=== PATIENT | female | born 1945 | race Caucasian/White ===

== ENCOUNTER → 2016-07-05 | Outpatient (CLI) | payer BC ==
[~2016-07-05] MED LIST: ALBUAER19 INH; ASPEC325 PO; BIMA0.01 OPB; DICL-201 PO; FRRG PO; GLC500 PO; LISI10TA PO; MULT-506 PO; SIMV20TA2 PO; SYN137 PO
--- NOTE | 2016-07-06 12:41 | MAMMOGRAPHY REPORT ---
BILATERAL DIGITAL SCREENING MAMMOGRAM TOMOSYNTHESIS WITH CAD: 07/05/2016 CLINICAL HISTORY: Routine screening. Patient has no complaints. TECHNIQUE: Breast tomosynthesis in addition to standard 2D mammography was performed. Current study was also evaluated with a Computer Aided Detection (CAD) system. COMPARISON: Comparison is made to exams dated: 07/18/2015 aspiration, 07/18/2015 mammogram, 07/09/2015 ultrasound, 07/09/2015 mammogram, 06/30/2015 mammogram, and 06/13/2014 mammogram - [facility]. BREAST COMPOSITION: There are scattered areas of fibroglandular density in both breasts. FINDINGS: There are benign calcifications and rodlike secretory calcifications in the breasts. A st able ribbon shaped metallic biopsy marker in the right upper outer quadrant. No suspicious mass, ar chitectural distortion or cluster of suspicious microcalcifications is seen. IMPRESSION: ACR BI-RADS CATEGORY 1: NEGATIVE There is no mammographic evidence of malignancy. A 1 year screening mammogram is recommended. The p atient will receive written notification of the results. Approximately 10% of breast cancers are not detected with mammography. A negative mammographic repor t should not delay biopsy if a clinically suggestive mass is present. Zeina Montejo M.D. ay/:07/05/2016 21:23:20 Iv Therapy Nurse: Omaira Kang, [facility] letter sent: Normal 1/2 BI-RADS Code: ACR BI-RADS Category 1: Negative
== END | disposition home or self-care (01) ==
LOC: C.MAMM 08:55
PROVIDERS: ATTEND Family Medicine
DX: Z12.31 Encounter for screening mammogram for malignant neoplasm of breast (principal)

== ENCOUNTER → 2017-08-09 | Outpatient (CLI) | payer BC ==
--- NOTE | 2017-08-10 15:22 | MAMMOGRAPHY REPORT ---
BILATERAL DIGITAL SCREENING MAMMOGRAM TOMOSYNTHESIS WITH CAD: 08/09/2017 CLINICAL HISTORY: Routine screening. Patient has no complaints. TECHNIQUE: Breast tomosynthesis in addition to standard 2D mammography was performed. Current study was also evaluated with a Computer Aided Detection (CAD) system. COMPARISON: Comparison is made to exams dated: 07/05/2016 mammogram, 07/18/2015 mammogram, 06/30/2015 tunde mogram, 06/13/2014 mammogram, 04/21/2010 mammogram, and 04/17/2009 mammogram - [facility]. BREAST COMPOSITION: There are scattered areas of fibroglandular density in both breasts. FINDINGS: There is stable asymmetry in the subareolar left breast, a stable ribbon-shaped biopsy [place] clip in the right upper outer quadrant, and diffuse benign-appearing calcifications. No new suspi cious mass, architectural distortion or cluster of microcalcifications is seen. IMPRESSION: ACR BI-RADS CATEGORY 1: NEGATIVE There is no mammographic evidence of malignancy. A 1 year screening mammogram is recommended. The pa tient will receive written notification of the results. Approximately 10% of breast cancers are not detected with mammography. A negative mammographic report should not delay biopsy if a clinically suggestive mass is present. Zeina Montejo M.D. ay/:08/09/2017 17:06:20 Crystal Evaluator: Samantha LITTLE)(Gloria), [facility] letter sent: Normal 1/2 BI-RADS Code: ACR BI-RADS Category 1: Negative
== END | disposition home or self-care (01) ==
LOC: C.MAMM 14:39
PROVIDERS: ATTEND Family Medicine
DX: Z12.31 Encounter for screening mammogram for malignant neoplasm of breast (principal)

== ENCOUNTER 2017-09-23 04:54 | Inpatient (IN) | payer BC, OTHER ==
[2017-08-23 10:17] VITALS: BMI 23.0
--- NOTE | 2017-08-23 10:49 | PAT Medication Instructions ---
Service Date Aug 23, 2017. Current Home Medication List Albuterol Hfa (Ventolin Hfa), 2 PUFFS INH Q6H PRN for PRN Bimatoprost (Lumigan), 1 DROP OPB QPM Diclofenac (Voltaren), 75 MG PO BID Levothyroxine Sodium (Synthroid), 200 MCG PO QAM Metformin Hcl (Glucophage Ext Rel), 1,000 MG PO BID Multivitamin (Multivitamin), 1 TAB PO QAM Simvastatin (Zocor), 20 MG PO QAM [Lisinopril Hctz], 1 TAB PO QAM Medication Instructions For Your Scheduled Surgery - Check with surgeon for instructions: Diclofenac (Voltaren), 75 MG PO BID - Hold the following medications the morning of surgery: Metformin Hcl (Glucophage Ext Rel), 1,000 MG PO BID Multivitamin (Multivitamin), 1 TAB PO QAM Simvastatin (Zocor), 20 MG PO QAM [Lisinopril Hctz], 1 TAB PO QAM - Take the following medications the morning of surgery with a sip of water: Levothyroxine Sodium (Synthroid), 200 MCG PO QAM Albuterol Hfa (Ventolin Hfa), 2 PUFFS INH Q6H PRN for PRN (if needed) - Take the following medications as scheduled the night before surgery: Metformin Hcl (Glucophage Ext Rel), 1,000 MG PO BID Bimatoprost (Lumigan), 1 DROP OPB QPM Albuterol Hfa (Ventolin Hfa), 2 PUFFS INH Q6H PRN for PRN (if needed) If you have any questions please call us at [phone] or [phone] or [phone]
--- NOTE | 2017-08-23 12:11 | DIAGNOSTIC IMAGING REPORT ---
CHEST 2 VIEWS ROUTINE CLINICAL HISTORY: Preoperative chest COMPARISON STUDY: 10/11/2014 FINDINGS: The cardiac and mediastinal contours remain stable. There is aortic tortuosity. There is no failure. There is no focal pulmonary consolidation. There are no pleural effusions. Postsurgical changes are present within the left shoulder. Moderate arthritic changes are present within the right shoulder.[ IMPRESSION: No active disease in the chest. Electronically signed by: Jose Addison M.D. 08/23/2017 12:09 PM Dictated Date/Time: 08/23/2017 12:08 PM
[2017-08-23 12:52] LABS: BASO % 0.9 %; BASO ABS # 0.05 K/uL (0-0.2); EOS % 3.1 %; EOS ABS # 0.18 K/uL (0-0.5); HEMATOCRIT 39.6 % (37-47); HEMOGLOBIN 13.9 g/dL (12.0-16.0); IG# 0.01 K/uL (0.00-0.02); LYMPH % 21.9 %; LYMPH ABS # 1.26 K/uL (1.2-3.4); MEAN CELL VOLUME 83.9 fL (80-100); MEAN CORPUSCULAR HEMOGLOBIN 29.4 pg (25-34); MEAN CORPUSCULAR HGB CONC 35.1 g/dl (32-36); MONO % 6.1 %; MONO ABS # 0.35 K/uL (0.11-0.59); NEUT % 67.8 %; NEUT ABS # 3.91 K/uL (1.4-6.5); PLATELET COUNT 189 K/uL (130-400); RED CELL DISTRIBUTION WIDTH CV 14.2 % (11.5-14.5); RED CELL DISTRIBUTION WIDTH SD 43.7 fL (36.4-46.3); WHITE BLOOD COUNT 5.76 K/uL (4.8-10.8)
[2017-08-23 13:03] LABS: PTT PATIENT 27.9 SECONDS (21.0-31.0)
[2017-08-23 13:37] LABS: CALCIUM 9.7 mg/dl (8.5-10.1); CREATININE 0.6 mg/dl (0.60-1.20); POTASSIUM 3.7 mmol/L (3.5-5.1)
--- NOTE | 2017-09-22 16:19 | HISTORY & PHYSICAL EXAMINATION ---
DATE OF ADMISSION: 09/23/2017 CHIEF COMPLAINT: Primary osteoarthritis of the right hip. HISTORY OF PRESENT ILLNESS: Nighat is a very pleasant 71-year-old female who presented to my office with chronic right hip and groin pain. X-rays and clinical examination were diagnostic for primary osteoarthritis of the right hip. After failing extensive conservative treatment, she elected to proceed with a right total hip arthroplasty. PAST MEDICAL HISTORY: Significant for hypertension, hyperlipidemia, asthma, anxiety, hypothyroidism, diabetes, and osteoarthritis. MEDICATIONS: Include diclofenac twice a day, metformin twice a day, lisinopril daily, Synthroid daily, and simvastatin daily. PAST SURGICAL HISTORY: Significant for a surgery to her shoulder, her knee and a cholecystectomy. ALLERGIES: SULFA DRUGS, WHICH CAUSE BREATHING DIFFICULTY AND HIVES AND POLLENS. FAMILY HISTORY: Denies. SOCIAL HISTORY: She denies any alcohol, tobacco or IV drug use. REVIEW OF SYSTEMS: She complains mostly of right hip pain. All other pertinent review of systems are negative. PHYSICAL EXAMINATION: GENERAL: She is awake, alert and orient x3. She is in no apparent distress. She is very pleasant. HEENT: Pupils equal, round and reactive to light. Extraocular movements intact. Oral mucosa is pink and moist. HEART: Regular rate per radial pulse. LUNGS: Marielos symmetrically bilaterally with no audible breath sounds. ABDOMEN: Soft, nontender, and nondistended. MUSCULOSKELETAL: On physical examination of her hip, she has about 100 degrees of flexion. She has very limited internal and external rotation with reproducible pain in the groin and end range of motion. Leg lengths are equal. She has good strength with straight leg raise. IMAGING DATA: X-rays of the right hip do show advanced osteoarthritis with joint space narrowing, osteophyte formation and subchondral cyst. IMPRESSION: Primary osteoarthritis of the right hip. PLAN: We will proceed with a right anterior total hip arthroplasty. Postoperatively, she will be started on aspirin for DVT prophylaxis and kept in the hospital for postoperative medical management.
[~2017-09-23] VITALS: Ht 170.2 cm; Wt 68.8 kg
[2017-09-23] VITALS (10 sets, daily range): BP systolic 107–170; BP diastolic 70–103; PULSE 61–89; TEMP 36.4–36.8; O2SAT 96–100; Ht 170.2 cm; Wt 68.8 kg
[~2017-09-23 04:54] MED LIST changes: -ALBUAER19 INH; -ASPEC325 PO; -FRRG PO; -GLC500 PO; -LISI10TA PO; +LISINOPRIL HCTZ PO; +METF1TAB53 PO; -SYN137 PO; +SYN200 PO; +VNTHFA/IN INH
[2017-09-23] MEDS ORDERED: LACTATED RINGER'S 1000ML 1,000 ML IV SCH (06:00)
[2017-09-23] MEDS ORDERED: LACTATED RINGER'S 1000ML 500 ML IV SCH (06:00)
[2017-09-23] MEDS ORDERED: CEFAZOLIN 2000MG IV PUSH 15 ML IV SCH (06:00)
[2017-09-23] MEDS ORDERED: GABAPENTIN 300 MG CAP PO SCH (06:00)
[2017-09-23] MEDS ORDERED: ACETAMINOPHEN 500 MG TAB PO SCH ×2 (06:00→14:00)
[2017-09-23] MEDS ORDERED: LACTATED RINGER'S 1000ML IV SCH (06:00)
[2017-09-23] MEDS ORDERED: FAMOTIDINE 20 MG TAB PO SCH (06:00)
[2017-09-23] MEDS ORDERED: ROPIVACAINE 5MG/ML 30 ML 150 MG, BUPIVACAINE 0.5% MPF INJ 30 ML, EpINEphrine HCL INJ 0.... INFIL SCH ×8 (06:00)
[2017-09-23] MEDS ORDERED: BUPIVACAINE 0.5 % 5 MG/1 ML PF 10ML VIAL ONE (06:28)
[2017-09-23] MEDS: TRANEXAMIC ACID INJ 1,000 MG x 2 Bags IV SCH ×4 (06:30→06:40)
[2017-09-23] MEDS ORDERED: BACITRACIN 50000 UNIT VIAL ONE (06:30)
[2017-09-23] MEDS ORDERED: ORTHO JOINT ANESTHETIC ONE (06:30)
[2017-09-23] MEDS ORDERED: FENTANYL CITRATE INJ 50 MCG/1 ML 2 ML VIAL ONE (06:45)
[2017-09-23] MEDS ORDERED: MIDAZOLAM HCL 1 MG/ML 2ML VIAL ONE ×2 (06:45→07:15)
--- NOTE | 2017-09-23 06:57 | History & Physical Bridge Note ---
H&P Re-Evaluation Bridge Note: I have examined the patient, reviewed the History & Physical and in the interval since the performance of the History & Physical I have noted the following changes of clinical significance: No changes noted
[2017-09-23] MEDS ORDERED: MEPERIDINE HCL 25 MG/ML CARP IV PRN (07:30)
[2017-09-23] MEDS ORDERED: ONDANSETRON INJ 2 MG/ML 2 ML VIAL IV PRN ×2 (07:30→09:00)
[2017-09-23] MEDS ORDERED: EpHEDrine SULFATE INJ 50 MG/ML AMP IV PRN (07:30)
[2017-09-23] MEDS ORDERED: PHENYLEPHRINE 100MCG/ML 5ML SYR IV PRN (07:30)
[2017-09-23] MEDS ORDERED: FENTANYL CITRATE INJ 50 MCG/1 ML 2 ML VIAL IV PRN (07:30)
[2017-09-23] MEDS ORDERED: LABETALOL HCL IV 5 MG/ML 20ML IV PRN (07:30)
[2017-09-23] MEDS ORDERED: HYDROmorphone INJ 2 MG/ML SYR/VIAL IV PRN (07:30)
[2017-09-23] MEDS ORDERED: NALOXONE HCL 0.4 MG/1 ML VIAL/CARP IV PRN (07:30)
[2017-09-23] MEDS ORDERED: ATROPINE SULFATE 0.1 MG/ML 5ML SYR IV PRN (07:30)
[2017-09-23] MEDS ORDERED: FLUMAZENIL 0.1 MG/1 ML 10 ML VIAL IV PRN (07:30)
[2017-09-23] MEDS ORDERED: PHENYLEPHRINE 100MCG/ML 5ML SYR ONE (08:37)
[2017-09-23] MEDS ORDERED: EpHEDrine SULFATE 50MG/5ML SYR ONE (08:37)
[2017-09-23] MEDS ORDERED: PROPOFOL IV EMULSION 10 MG/ML 20 ML VIAL IV ONE (08:37)
--- NOTE | 2017-09-23 08:49 | [facility] Post Operative Brief Note ---
Immediate Operative Summary Operative Date Sep 23, 2017. Pre-Operative Diagnosis Primary osteoarthritis of the right hip Post-Operative Diagnosis Same as preop Procedure(s) Performed Right Anterior Total Hip Arthroplasty Uncemented Surgeon Dr. Ash Geologist Petroleum Surgeon(s) Juanjo Austin PA-C Estimated Blood Loss 200 ml Findings Consistent with Post-Op Diagnosis Specimens A. Right Femoral Head Drains None Anesthesia Type Spinal MAC Complication(s) none Disposition Disposition: Recovery Room / PACU
[2017-09-23] MEDS ORDERED: GLUCAGON FOR INJ 1 MG VIAL SQ PRN (09:00)
[2017-09-23] MEDS ORDERED: METOCLOPRAMIDE HCL INJ 5 MG/ML 2 ML VIAL IV PRN (09:00)
[2017-09-23] MEDS ORDERED: MoRPHine SULFATE 2 MG/ML CARP IV PRN (09:00)
[2017-09-23] MEDS ORDERED: SOD PHOSPHATE/SOD BIPHOSPHATE ENEMA 132 ML BTL PR PRN (09:00)
[2017-09-23] MEDS ORDERED: MAGNESIUM HYDROXIDE SUSP 30 ML UDC PO PRN (09:00)
[2017-09-23] MEDS ORDERED: GLUCOSE 10 TABS/TUBE PO PRN (09:00)
[2017-09-23] MEDS ORDERED: OXYCODONE HCL IR 5 MG TAB (IMMEDIATE RELEASE) PO PRN (09:00)
[2017-09-23] MEDS ORDERED: LISINOPRIL HCTZ PO SCH (09:00)
[2017-09-23] MEDS ORDERED: BISACODYL 10 MG SUPP PR PRN (09:00)
[2017-09-23] MEDS ORDERED: ALBUTEROL HFA 8 GM INHALER INH PRN (09:00)
[2017-09-23] MEDS ORDERED: CEFAZOLIN IV 2,000 MG in DEXTROSE 5% 50ML 50 ML IV SCH (09:00)
[2017-09-23] MEDS ORDERED: DEXTROSE 50% 50 ML SYR IV PRN (09:00)
[2017-09-23] MEDS ORDERED: GLUCOSE 40% GEL 15 GM TUBE PO PRN (09:00)
--- NOTE | 2017-09-23 09:05 | DIAGNOSTIC IMAGING REPORT ---
FLUOROSCOPIC IMAGES OF THE RIGHT HIP CLINICAL HISTORY: Right hip arthroplasty. COMPARISON STUDY: Right hip radiographs June 29, 2017. Fluoroscopy time: 1 minute and 4 seconds. FINDINGS: 2 fluoroscopic images demonstrate placement of an acetabular cup and femoral component of the right hip arthroplasty. There is an acetabular screw. Hardware is intact. Alignment is anatomic. There is no acute fracture. IMPRESSION: Expected intraoperative findings during total right hip arthroplasty. Electronically signed by: Da Hatch M.D. 09/23/2017 9:03 AM Dictated Date/Time: 09/23/2017 9:03 AM
[2017-09-23] MEDS ORDERED: PHARMACY GLYCEMIC MGMT CONSULT PRN (09:09)
--- NOTE | 2017-09-23 09:20 | Pharmacy Progress Note ---
Glycemic Control Intl Consult Date of Service Sep 23, 2017. Scope Glycemic Pharmacist consulted by Dr Ash on 09/23/17 for glycemic control and to write orders per [facility] inpatient glycemic control protocol Objective Weight (Kilograms): 68.8 Accuchecks BSG (last 24hrs): Test 09/23/17 05:22 Bedside Glucose 117 mg/dl (70-90) Recent Pertinent Medications Outpatient Anti-diabetic Regimen: * metformin XR 1 gm PO BID * A1c = 5.9 % 10/11/2014 Risk Factors for Insulin Resistance: * Steroids: dexamethasone 4 mg topically * Recent Surgery: POD 0 for R hip surgery * Diet: type 2 diabetic diet Assessment & Plan ASSESSMENT: * Ms Wagoner is a 72 y/o F with a PMH of HTN, HLD, asthma, anxiety, OA, and type 2 diabetes with unknown control (goal HbA1C according to Elements of Diabetes Care Scoring Scale is around 6.5%). * Ms Wagoner underwent a right hip replacement today and received 4 mg of dexamethasone topically. The effects of topical dexamethasone is variable for patients. Fasting blood sugar prior to surgery was 117 mg/dL. For Lantus, will give 15 units (between half doses of weight-based stress of 2 and 3) if blood sugar over 180 mg/dL. Will utilize weight-based stress of 2 Novolog as patient did not receive any oral or intravenous dexamethasone which would require weight -based stress of 3. * Add 0200 accucheck to ensure 24 hour coverage. * Pt is maintained on oral antidiabetic agents as an outpatient * Oral agents are not recommended for inpatient use d/t drug interactions, changing PO intake, and difficulty titrating for acute hyper/hypoglycemia. ADA recommends re-initiating outpatient oral agents 1-2 days prior to discharge if/ when appropriate if they were held on admission. * Restart POD 1 or 2 depending on patient's diet and oral intake. * Will hold oral agents for admission and utilize SQ basal bolus insulin regimen which is the recommended regimen for inpatient glycemic control. * Will initiate weight based insulin dosing for insulin shiv patient and titrate based on BSG trends. PLAN FOR INPATIENT GLYCEMIC CONTROL: * Holding outpatient oral diabetes medications * Basal insulin with LANTUS 15 units SQ if blood sugar over 180 mg/dL * Correctional Insulin with NOVOLOG per scale ACHS or Q6hrs while NPO * Goal Range: Low 110 mg/dL - High 140 mg/dL * Correction Factor: 30 mg/dL/unit * Nutritional / Prandial insulin per carb ratio of 1 unit per 10 grams CHO consumed * Please note that the plan above was derived based on current level of insulin resistance and hospital stress. These recommendations are appropriate for inpatient admission only. Plan of care upon discharge will need to be reassessed to avoid potential outpatient hypo/hyperglycemia. Thank you.
--- NOTE | 2017-09-23 09:39 | DIAGNOSTIC IMAGING REPORT ---
AP PELVIS AND RIGHT HIP 2 VIEWS CLINICAL HISTORY: Degenerative arthritis. Postoperative study. COMPARISON STUDY: Outside study dated 06/29/2017 FINDINGS: There are postsurgical changes of a total right hip arthroplasty. The acetabular and femoral components appear well seated. There are overlying skin emma. There is no dislocation. Air within the soft tissues is felt to be postsurgical IMPRESSION: Postsurgical changes of a total right hip arthroplasty Electronically signed by: Jose Addison M.D. 09/23/2017 9:38 AM Dictated Date/Time: 09/23/2017 9:37 AM
--- NOTE | 2017-09-23 10:07 | Anesthesiology Progress Note ---
Anesthesia Post Op Note Date & Time Sep 23, 2017 at 10:07 Vital Signs Pain Intensity: 0 Vital Signs Past 12 Hours Date Time Temp Pulse Resp B/P (MAP) Pulse Ox O2 Delivery O2 Flow Rate FiO2 09/23/17 09:55 36.6 62 14 117/75 100 Nasal Cannula 2 09/23/17 09:45 36.6 61 14 118/75 100 Nasal Cannula 2 09/23/17 09:35 68 14 116/77 100 Nasal Cannula 2 09/23/17 09:25 71 14 107/76 100 Nasal Cannula 2 09/23/17 09:15 71 14 118/76 100 Oxymask 10 09/23/17 09:07 36.6 79 14 112/77 100 Oxymask 10 09/23/17 05:27 36.8 89 20 170/103 97 Room Air Notes Mental Status: alert / awake / arousable, participated in evaluation Pt Amnestic to Procedure: Yes Nausea / Vomiting: adequately controlled Pain: adequately controlled Airway Patency, RR, SpO2: stable & adequate BP & HR: stable & adequate Hydration State: stable & adequate Neuraxial Anesthesia: was administered, sensory block is resolving Anesthetic Complications: no major complications apparent
[2017-09-23] MEDS ORDERED: INSULIN ASPART 100 UNITS/ML 3 ML PEN SC SCH (11:00)
[2017-09-23] MEDS: SODIUM CHLORIDE 0.9% 1000ML 1,000 ML IV SCH ×2 (12:02→21:41)
[2017-09-23] MEDS: KETOROLAC TROMETHAMINE 15 MG/ML VIAL IV. SCH ×2 (12:47→18:33)
[2017-09-23] MEDS: INSULIN ASPART 100 UNITS/ML 3 ML PEN SC SCH ×3 (13:42→20:48)
[2017-09-23] MEDS: ACETAMINOPHEN IV 1,000 MG in EMPTY BAG 0 ML IV SCH ×2 (13:51→21:40)
--- NOTE | 2017-09-23 14:45 | OPERATIVE REPORT ---
DATE OF OPERATION: 09/23/2017 PREOPERATIVE DIAGNOSIS: Primary osteoarthritis of the right hip. POSTOPERATIVE DIAGNOSIS: Same. PROCEDURE: Right total hip arthroplasty. SURGEON: Dr. Jony Ash. PLATE EMBOSSER: Juanjo Austin PA-C, whose assistance was necessary for retraction and closure. ANESTHESIA: Spinal. COMPLICATIONS: None. CONDITION: Stable to PACU. IMPLANTS USED: I used a Biomet Taperloc total hip arthroplasty system with a G7 OsseoTi cup size 50 mm with a single 30 mm screw and E1 neutral poly liner, a size 10 high offset Taperloc stem and a 36 mm ceramic head with a +0 neck. INDICATIONS: Nighat is a pleasant 72-year-old female who presented to my office with chronic right hip and groin pain. X-rays and clinical examination were diagnostic for primary osteoarthritis of the right hip. After failing conservative treatment, she elected to undergo a right total hip arthroplasty. OPERATION AND FINDINGS: On 09/23/2017, she arrived at [facility] for the above procedure. She was seen in the preoperative holding area and the operative extremity was identified and signed. She was given a preoperative antibiotic and a spinal anesthetic. She was taken back to the operating room, laid on the table in supine position and given basic sedation. The right hip was then brought out to a purist leg positioner. The right hip was then prepped and draped in sterile fashion. Time-out was done and the patient and operative extremity was properly identified. An anterior approach was used. Dissection was taken down through the fascia and the tensor muscle belly was retracted laterally and the rectus was retracted medially. The circumflex vessels were ligated. The capsule was then incised and tagged for later repair. The femoral neck was then exposed and the femoral neck was resected. The femoral head was then removed. The acetabulum was exposed. Time was spent doing a complete circumferential labral release. Sequential reaming of the acetabulum was done up to a size 49 reamer. Final reaming was checked under fluoroscopy to ensure appropriate version. A size 50 mm OsseoTi G7 cup was then impacted into place. I went with OsseoTi because of poor bone quality. A single 30 mm screw was placed and got excellent purchase. An E1 neutral poly liner was then snapped into place. Fluoroscopic images showed anatomic version. The proximal femur was then exposed. Sequential broaching up to a size 10 broach was done. Off that final broach, a high offset neck was placed with a 36 mm standard head. The hip was then reduced. Fluoroscopic images showed anatomic alignment. The hip was then dislocated. The trials were removed. The final size 10 high offset Taperloc stem was impacted into place. A 36 mm ceramic head with a +0 neck was then impacted into place. The hip was then reduced and final fluoroscopic images showed anatomic alignment. The wound was then irrigated with 3 liters normal saline solution with bacitracin. Surrounding soft tissues were all injected with 100 mL of an orthopedic pain control cocktail. The wound was once again irrigated. The capsule was then closed with #1 Vicryl suture, fascia was closed with #1 PDS and skin was closed with 2-0 Vicryl and emma. A Prevena VAC dressing was applied. She was then taken to the postanesthesia care unit in stable condition. She tolerated the procedure well. I attest to the content of the Intraoperative Record and any orders documented therein. Any exception s are noted below.
[2017-09-23] MEDS: CEFAZOLIN IV 2,000 MG in SYRINGE 0 ML IV SCH ×2 (14:46→22:30)
[2017-09-23] MEDS ORDERED: PNEUMOCOCCAL ADMINISTRATION CHARGE ONE (16:30)
[2017-09-23] MEDS ORDERED: PNEUMOCOCCAL POLYSACCHARIDES 25 MCG/0.5 ML VIAL/SYR IM. ONE (16:30)
[2017-09-23] MEDS ORDERED: INSULIN GLARGINE SOLOSTAR 100 UNITS/ML 3 ML PEN SC PRN (17:00)
[2017-09-23] MEDS ORDERED: NURSING VERBAL MED ORDER ONE (18:30)
[2017-09-23] MEDS: DOCUSATE SODIUM 100 MG CAP PO SCH (20:52)
[2017-09-23] MEDS: ASPIRIN 325 MG ECTAB PO SCH (20:52)
[2017-09-23] MEDS ORDERED: BIMATOPROST 0.01% OP SOLN 2.5 ML BTL OPB SCH (21:00)
[2017-09-23] MEDS ORDERED: SENNA 8.6 MG TAB PO SCH (21:00)
[2017-09-24] MEDS: KETOROLAC TROMETHAMINE 15 MG/ML VIAL IV. SCH ×3 (00:33→13:25)
[2017-09-24] MEDS ORDERED: INSULIN ASPART 100 UNITS/ML 3 ML PEN SC SCH (02:00)
[2017-09-24 03:45] VITALS: BP 120/68; PULSE 69; TEMP 36.7; O2SAT 98
[2017-09-24 05:49] LABS: BASO % 0.3 %; BASO ABS # 0.03 K/uL (0-0.2); EOS % 1.2 %; EOS ABS # 0.11 K/uL (0-0.5); HEMATOCRIT 26.5 % (37-47); HEMOGLOBIN 9.5 g/dL (12.0-16.0); IG# 0.01 K/uL (0.00-0.02); LYMPH % 14.5 %; LYMPH ABS # 1.38 K/uL (1.2-3.4); MEAN CELL VOLUME 85.5 fL (80-100); MEAN CORPUSCULAR HEMOGLOBIN 30.6 pg (25-34); MEAN CORPUSCULAR HGB CONC 35.8 g/dl (32-36); MEAN PLATELET VOLUME 9.8 fL (7.4-10.4); MONO % 7.7 %; MONO ABS # 0.73 K/uL (0.11-0.59); NEUT % 76.2 %; NEUT ABS # 7.25 K/uL (1.4-6.5); PLATELET COUNT 146 K/uL (130-400); RED CELL DISTRIBUTION WIDTH CV 13.7 % (11.5-14.5); WHITE BLOOD COUNT 9.51 K/uL (4.8-10.8)
[2017-09-24] MEDS: ACETAMINOPHEN IV 1,000 MG in EMPTY BAG 0 ML IV SCH (05:57)
[2017-09-24] MEDS ORDERED: LEVOTHYROXINE 200 MCG TAB PO SCH (06:00)
[2017-09-24 06:19] LABS: CALCIUM 7.9 mg/dl (8.5-10.1); CREATININE 0.62 mg/dl (0.60-1.20); POTASSIUM 3.4 mmol/L (3.5-5.1)
[2017-09-24] MEDS: SODIUM CHLORIDE 0.9% 1000ML 1,000 ML IV SCH (06:45)
[2017-09-24 07:01] VITALS: BP 162/80; PULSE 75; TEMP 36.6; O2SAT 97
[2017-09-24] MEDS ORDERED: ASPEC325 PO (07:22)
[2017-09-24] MEDS ORDERED: RXC5 PO (07:22)
--- NOTE | 2017-09-24 07:23 | Discharge Instructions ---
Discharge Instructions Date of Service Sep 24, 2017. Admission Reason for Admission: Right Hip Degenerative Joint Disease Discharge Discharge Diagnosis / Problem: Right Total Hip Discharge Goals Goal(s): Decrease discomfort, Improve function Activity Recommendations Activity Limitations: as noted below . Instructions / Follow-Up Instructions / Follow-Up Activity and Therapy Recommendations: * If you are using [facility] then Physical Therapy will be provided until they feel you are ready to start Outpatient Physical Therapy. If you are not using a Home Health agency then Outpatient Physical Therapy should start about 3-5 days from your day of surgery. Therapy will last about 3-6 weeks * You were shown a series of exercises in the hospital. Do these exercises three times each day including the exercises you were shown in physical therapy. * Get up and walk several times each day.~ For the first four weeks, try not to stand or walk for more than one hour at a time. If you do stand or walk for more than one hour, you will not hurt anything, but your leg will likely swell.~ ~ * As you feel comfortable, you may change from the walker or crutches to a cane and~then to independent walking. Medications: * Narcotic You will likely be sent home from the hospital with a prescription for the narcotic pain medication that worked best throughout your stay. * Aspirin Most patients will be required to take Aspirin 325mg twice a day for 6 weeks after surgery. This is obtained [id number] and a prescription is not necessary. * Other medications may be prescribed for specific circumstances. If you have any questions, please call the office at . * Resume previous home medications unless otherwise instructed TEDs/Elastic Stockings: The white elastic stockings help limit swelling and prevent blood clots from forming in your legs. The more you wear them, the more they work. Wear them for six weeks. Dressing Care: You will likely have a purple VAC dressing after surgery. This dressing will keep the incision dry and promote early healing. After about 8 days the batteries will wear out and the VAC will lose suction. Simply remove the dressing at that time and throw everything away, including the small suction machine. Then, you may leave the emma open to air or cover them with a dry dressing so they do not rub on your pants. The emma will be removed at your 2 week follow-up appointment. Showering: You may shower immediately with the purple VAC dressing. Let the shower spray hit your opposite side and slowly pat the plastic dry. Do not soak the dressing. After the dressing is removed you may shower normally with the emma exposed. Let soapy water run over the emma and pat them dry. Things To Watch For: * Drainage from the incision site that occurs more than one week after your surgery. * Increased redness at the incision site. * Fever above 102 degrees Fahrenheit. * Unusual chest pain or shortness of breath. * Call [facility] at with any of the above problems Follow-Up Visit: Follow-up with Dr. Ash 2 weeks after your day of surgery. An appointment was probably scheduled when you signed-up for surgery in the office. If you have any questions call Office Instructions: More detailed instructions as well as Frequently Asked Questions were provided in a folder by our office when you signed-up for surgery. Please review these instructions when you get home. If you have any further questions or concerns, please feel free to call the office at [phone] Current Hospital Diet Patient's current hospital diet: Diabetes Type 2 Diet Discharge Diet Recommended Diet: Diabetes Type 2 Diet Procedures Procedures Performed: Right Anterior Total Hip Arthroplasty Uncemented Pending Studies Studies pending at discharge: no Laboratory Results Hemoglobin A1c Test 09/24/17 05:16 Range/Units Medical Emergencies . Who to Call and When: Medical Emergencies: If at any time you feel your situation is an emergency, please call [phone] immediately. . Non-Emergent Contact Non-Emergency issues call your: Surgeon Call Non-Emergent contact if: wound has increased drainage, wound has increased redness . "Provider Documentation" section prepared by Jony Ash. .
[2017-09-24 07:27] LABS: HEMOGLOBIN A1C 5.7 % (4.5-5.6)
--- NOTE | 2017-09-24 07:45 | PROGRESS NOTE ---
DATE: 09/24/2017 CHIEF COMPLAINT: Status post right total hip arthroplasty postop day #1. PROGRESS: Nighat was seen and examined at bedside today. Overall, she is doing very well. She has very little pain in the right hip. She has been up and ambulating to the bathroom but she has not been in the hallways yet. She has no complaints. PHYSICAL EXAMINATION: RIGHT HIP: The Prevena VAC dressing is to suction. Leg lengths are equal. She has active dorsiflexion and plantar flexion of the right ankle and sensation to her quad is intact. DATA: She has an H&H today of 9.5 and 26.5. Her glucose is 98 and insulin is being managed by pharmacy. Her vital signs are all stable on room air and she is voiding on her own. X-rays postoperatively of the right hip show the prosthesis to be in anatomic alignment without any evidence of fracture, dislocation or loosening. IMPRESSION: Status post right total hip arthroplasty postop day #1. PLAN: At this point, she is doing very well. She has very little pain in the right hip. She will be seen by physical therapy today for ambulation. She is on aspirin for DVT prophylaxis. If she is doing well this afternoon, she can be discharged to home. She is going to be followed by [facility].
--- NOTE | 2017-09-24 07:53 | DISCHARGE SUMMARY ---
DISCHARGE DIAGNOSIS: Primary osteoarthritis of the right hip. PROCEDURE: Right total hip arthroplasty on 09/23/[address] Jony Ash. DISCHARGE INSTRUCTIONS: 1. Aspirin 325 mg twice a day for 6 weeks. 2. TOMMIE hose stockings for 6 weeks. 3. Oxycodone 5-10 mg every 4 hours as needed for pain. 4. Albuterol inhaler 2 puffs every 6 hours as needed. 5. Lumigan eyedrops daily. 6. Voltaren 75 mg twice a day. 7. Synthroid 200 mcg daily. 8. Glucophage 1000 mg twice a day. 9. Zocor 20 mg daily. 10. Lisinopril 10 mg daily. 11. Daily multivitamin. 12. Follow up with Dr. Ash in 2 weeks. 13. Call the office of Dr. Ash with any questions or concerns. HOSPITAL COURSE: Nighat is a pleasant 72-year-old female who presented to my office with complaints of chronic right hip and groin pain. X-rays and clinical examination were diagnostic for primary osteoarthritis of the right hip. After failing conservative treatment, she elected to undergo a right total hip arthroplasty. On 09/23/2017, she arrived at [facility] and underwent a right anterior total hip arthroplasty without complication. She had a spinal anesthetic. Postoperatively, she was started on aspirin for DVT prophylaxis and discharged to general orthopedic floors. Her hospital course was uneventful. On postop day #1, her H&H was stable at 9.5 and 26.5. She was able to get up and ambulate well with physical therapy. Her pain was well controlled. She got instructions on the Prevena VAC dressing. She had [facility] set up to see her when she returns home and she was subsequently discharged to home with the above instructions.
[2017-09-24] MEDS ORDERED: MULTIVITAMIN TAB PO SCH (09:00)
[2017-09-24] MEDS ORDERED: HYDROCHLOROTHIAZIDE 25 MG TAB PO SCH (09:00)
[2017-09-24] MEDS ORDERED: LISINOPRIL 10 MG TAB PO SCH (09:00)
[2017-09-24] MEDS ORDERED: SIMVASTATIN 20 MG TAB PO SCH (09:00)
[2017-09-24] MEDS: INSULIN ASPART 100 UNITS/ML 3 ML PEN SC SCH (09:43)
[2017-09-24] MEDS: DOCUSATE SODIUM 100 MG CAP PO SCH (09:44)
[2017-09-24] MEDS: ASPIRIN 325 MG ECTAB PO SCH (09:45)
[2017-09-24 12:25] VITALS: BP 162/80; PULSE 75; TEMP 36.6; O2SAT 97
[2017-09-24] MEDS ORDERED: METFORMIN HCL 500 MG TABCR PO SCH (17:45)
[2017-09-24] MEDS ORDERED: ACETAMINOPHEN 500 MG TAB PO SCH (22:00)
== END 2017-09-24 13:37 | disposition home or self-care (01) | DRG 470 ==
LOC: C.ACU 04:54 → C.3E 06:30 → ENRESERV 09:31
PROVIDERS: ADMIT Orthopaedic Surgery; ATTEND Orthopaedic Surgery
PROC: 0SR904A Replacement of Right Hip Joint with Ceramic on Polyethylene Synthetic Substitute, Uncemented, Open Approach (ICD-10-PCS; principal; 2017-09-23 07:00)
DX: M16.11 Unilateral primary osteoarthritis, right hip (principal); I10 Essential (primary) hypertension; E11.9 Type 2 diabetes mellitus without complications; E03.9 Hypothyroidism, unspecified; E78.5 Hyperlipidemia, unspecified; J45.909 Unspecified asthma, uncomplicated; Z79.899 Other long term (current) drug therapy; Z79.84 Long term (current) use of oral hypoglycemic drugs; Z79.1 Long term (current) use of non-steroidal anti-inflammatories (NSAID); Z88.2 Allergy status to sulfonamides; Z91.048 Other nonmedicinal substance allergy status

== ENCOUNTER → 2018-02-17 | Outpatient (CLI) | payer BC ==
[~2018-02-17] MED LIST changes: +ASPEC325 PO; +RXC5 PO
== END | disposition home or self-care (01) ==
LOC: C.LABBC 11:45
PROVIDERS: ATTEND Orthopaedic Surgery
DX: M25.562 Pain in left knee (principal); M25.462 Effusion, left knee

== ENCOUNTER 2021-01-01 18:03 | Inpatient (IN) ==
[2021-01-01] MEDS ORDERED: cefTRIAXone SODIUM 1,000 MG/50 ML BAG IV STA (19:04)
[2021-01-01] MEDS ORDERED: SODIUM CHLORIDE 0.9% 1000ML 1,000 ML IV STA (19:04)
[2021-01-01] MEDS ORDERED: VANCOMYCIN HCL 2,000 MG in SODIUM CHLORIDE 0.9% 500 ML IV ONE (19:04)
[2021-01-01] MEDS ORDERED: VANCOMYCIN CONSULT ACTIVE PRN (19:04)
--- NOTE | 2021-01-01 19:10 | Emergency Department Note ---
Impression & Plan Cellulitis of foot, Abscess of foot ED Provider Note NAME: VALE GUADARRAMA AGE: 75 SEX: F : 1945 ARRIVES VIA: Walk-In INFORMANT: Patient, the patient's family member ED PROVIDER(S): Iván Burnett DO CHIEF COMPLAINT: Foot pain HPI: The patient is a 75-year-old female who has a history of diabetic neuropathy and Charcot foot who presented to the emergency department for an evaluation of foot pain and swelling. The patient has a history of diabetic neuropathy. She is followed for this condition. Her family member states that he started noticing redness and swelling over the course the last 24 to 48 hours. He then noticed a large pustule forming over the sole of the foot. There is been no fever. The patient has had no nausea or vomiting. She has had no chest pain or difficulty breathing. Her sugars appear to be well controlled according to her family member. She did not see her family doctor for the symptoms but does have an appointment with the wound care center. The patient did talk to a family member who is also a medical provider and was advised to come the emergency department for further evaluation. ROS: See above HPI for pertinent positives & negatives. A total of 10 systems reviewed and were otherwise negative. PAST MEDICAL HISTORY: See Below PAST SURGICAL HISTORY: See Below FAMILY HISTORY: See Below SOCIAL HISTORY: See Below HOME MEDICATIONS: See Below ALLERGIES: See Below VITALS: See Below PHYSICAL EXAMINATION: GENERAL: The patient is awake and alert. She is nonanxious appearing. EYES: The conjunctivae are clear. The pupils are round and reactive. EARS, NOSE, MOUTH AND THROAT: The nose is without any evidence of any deformity. Mucous membranes are moist. Tongue is midline. NECK: The neck is nontender and supple. RESPIRATORY: Normal respiratory effort is noted there is no evidence of wheezing rhonchi or rales CARDIOVASCULAR: Regular rate and rhythm noted there no murmurs rubs or gallops normal S1 normal S2. GASTROINTESTINAL: The abdomen is soft. Abdomen is nontender. MUSCULOSKELETAL/EXTREMITIES: There is no evidence of gross deformity full range of motion is noted in the hips and shoulders. Charcot deformities are noted on both feet. SKIN: Significant erythema was noted over the left foot. There was lymphangitic streaking noted in the left ankle. On the plantar aspect of the foot was an abscess. NEUROLOGIC: Patient is awake alert and oriented to person place and situation. MEDICAL DECISION MAKING: The patient is a 75-year-old female who presented to the emergency department for an evaluation of foot swelling. Patient's history and physical exam appears to be consistent with an abscess on the plantar aspect of the foot as well as cellulitis. The abscess was incised in the emergency department. Cultures were sent. I discussed the patient's laboratory and radiographic studies with her and her family member. It is possible she may require further incision and drainage. I discussed the patient's condition with the on-call [facility] Hospitalist. They have agreed to evaluate the patient in the emergency department for further management and disposition. The patient was further treated with IV antibiotics. Triage Nursing notes reviewed. Prior medical records reviewed Vital Signs: reviewed and remarkable for no significant abnormalities Differential diagnosis: Cellulitis, abscess, MRSA infection, DVT, necrotizing fasciitis, dermatitis, drug eruption, allergic reaction, as well as other pathologies. ER treatment provided: See below Diagnostics interpreted by me: ECG: none Laboratory studies: As stated above and show below. Imaging studies: See below Consultation(s): [id number]: I discussed this case with Dr. Win who is on-call for the [facility] Hospitalist group. ED COURSE: Procedures: Incision & Drainage Indication: Abscess. Location: Plantar aspect left foot Verbal consent was obtained after the risks and benefits were explained, including but not limited to bleeding, scarring, infection, pain, and bone/joint/nerve damage. At this time, the risks of the procedure are less than the risks of NOT performing the procedure. A time out was taken and the correct patient and site identified. The skin was prepped with betadine and a sterile field set. The abscess cavity was entered with a number 11 blade and bloody and purulent material expressed. The wound was explored for foreign bodies and none found. Debridement was not performed. A wound dressing was applied. No complications and the patient tolerated the procedure well. Past Med/Surg History Medical History Anemia Anxiety Asthma USES PRN INH 1 X DAILY Diabetes mellitus, type 2 Glaucoma Hyperlipidemia Hypertension Hypothyroidism Osteoarthritis Seasonal allergies Surgical History H/O total hip arthroplasty History of cataract surgery right. 05/23/2018. 2mg versed. no issues History of colonoscopy History of total knee replacement RT History of total shoulder replacement LT Family History Mother Family history of diabetes mellitus Social History Smoking Status: Never smoker Second Hand Exposure: No; Hx Alcohol Use: No Hx Substance Use: No Preferred Language: Sudanese Communication Ability: Effective Projection Technician Required: No Beliefs That Will Affect Care: None Current Living Situation: Spouse Feels Safe at Home: Yes Assistive Devices: Glasses Allergies Allergies Allergy/AdvReac Type Severity Reaction Status Date / Time pollen extracts Allergy Unknown DIFFICULTY Verified 01/01/21 21:01 BREATHING Sulfa (Sulfonamide Allergy Unknown SWELLING,SO Verified 01/01/21 21:01 Antibiotics) B,HIVES Home Meds Home Medications Medication Instructions Recorded Confirmed albuterol sulfate [Ventolin HFA] 1 puff INHALATION Q6H PRN 04/27/18 01/01/21 lisinopril-hydrochlorothiazide 1 tab PO QAM 04/27/18 01/01/21 metformin 1,000 mg PO BID 04/27/18 01/01/21 simvastatin 20 mg PO QAM 04/27/18 01/01/21 clobetasol 1 applic TOPICAL BID 01/01/21 01/01/21 diclofenac sodium 75 mg PO BID 01/01/21 01/01/21 ipratropium-albuterol [DuoNeb] 3 ml INHALATION QID PRN 01/01/21 01/01/21 levothyroxine 125 mcg PO QAM 01/01/21 01/01/21 memantine 10 mg PO BID 01/01/21 01/01/21 multivitamin 1 tab PO QAM 01/01/21 01/01/21 olopatadine 1 drp OPHTHALMIC (EYE) DAILY 01/01/21 01/01/21 Results & Data (ED) Vital Signs Vital Signs - 24 hr 01/01/21 18:08 01/01/21 19:15 01/01/21 19:30 Temperature 37.3 C Temperature Source Oral Pulse Rate 67 62 63 Pulse Rate from SpO2 Sensor 61 Respiratory Rate 18 16 16 Respiratory Effort / Characteristics Non-Labored Respiratory Depth Normal Blood Pressure 148/83 H 154/88 H 150/86 H Blood Pressure Mean 104 110 107 Pulse Oximetry 98 97 Oxygen Delivery Method Room Air Sepsis Recent Fever Within 48 Hours No Sepsis New/Unexplained Change in Mental Status No Sepsis Action Taken by Nursing No Action Required 01/01/21 20:31 Temperature Temperature Source Pulse Rate 58 L Pulse Rate from SpO2 Sensor 59 L Respiratory Rate 19 Respiratory Effort / Characteristics Respiratory Depth Blood Pressure 135/92 Blood Pressure Mean 106 Pulse Oximetry 98 Oxygen Delivery Method Sepsis Recent Fever Within 48 Hours Sepsis New/Unexplained Change in Mental Status Sepsis Action Taken by [facility] Medications Current Medication List: was personally reviewed by me Laboratory Data Attestation: I reviewed the patient's lab results. Result diagrams: 01/01/21 19:15 01/01/21 19:15 Lab Results 01/01/21 01/01/21 01/01/21 Range/Units 19:15 19:15 19:15 WBC 10.74 (4.8-10.8) K/uL RBC 3.95 L (4.2-5.4) M/uL Hgb 11.4 L (12.0-16.0) g/dL Hct 34.3 L (37-47) % MCV 86.8 (80-100) fL MCH 28.9 (25-34) pg MCHC 33.2 (32-36) g/dL RDW Std Deviation 43.7 (36.4-46.3) fL RDW Coeff of Elizabeth 13.7 (11.5-14.5) % Plt Count 239 (130-400) K/uL MPV 9.7 (7.4-10.4) fL Immature Gran % (Auto) 0.3 % Neut % (Auto) 81.5 % Lymph % (Auto) 9.7 % [place] % (Auto) 6.3 % Eos % (Auto) 2.0 % Baso % (Auto) 0.2 % Neut # (Auto) 8.76 H (1.4-6.5) K/uL Lymph # (Auto) 1.04 L (1.2-3.4) K/uL [place] # (Auto) 0.68 H (0.11-0.59) K/uL Eos # (Auto) 0.21 (0-0.5) K/uL Baso # (Auto) 0.02 (0-0.2) K/uL Immature Gran # (Auto) 0.03 H (0.00-0.02) K/uL ESR 41 H (0-30) mm/hr Sodium 138 (136-145) mmol/L Potassium 3.9 (3.5-5.1) mmol/L Chloride 107 (98-107) mmol/L Carbon Dioxide 25 (21-32) mmol/L Anion Gap 6.0 (3-11) BUN 24 H (7-18) mg/dl Creatinine 0.89 (0.6-1.2) mg/dl Est Cr Clr Drug Dosing 51.1 ml/min Est GFR ( Amer) 73.5 ml/min Est GFR (Non-Af Amer) 63.4 ml/min BUN/Creatinine Ratio 27.2 H (10-20) Glucose 95 (70-99) mg/dl Calcium 9.4 (8.5-10.1) mg/dl Total Bilirubin 0.6 (0.2-1) mg/dl AST 19 (15-37) U/L ALT 26 (12-78) U/L Alkaline Phosphatase 96 (45-117) U/L C-Reactive Protein 2.92 H (0-0.29) mg/dl Total Protein 7.2 (6.4-8.2) gm/dl Albumin 3.6 (3.4-5.0) gm/dl Globulin 3.6 (2.5-4.0) gm/dl Albumin/Globulin Ratio 1.0 (0.9-2) Procalcitonin (0-0.5) ng/ml COVID-19 Eval Order SARS-CoV-2 (PCR) (Negative) 01/01/21 01/01/21 01/01/21 Range/Units 19:15 21:15 21:15 WBC (4.8-10.8) K/uL RBC (4.2-5.4) M/uL Hgb (12.0-16.0) g/dL Hct (37-47) % MCV (80-100) fL MCH (25-34) pg MCHC (32-36) g/dL RDW Std Deviation (36.4-46.3) fL RDW Coeff of Elizabeth (11.5-14.5) % Plt Count (130-400) K/uL MPV (7.4-10.4) fL Immature Gran % (Auto) % Neut % (Auto) % Lymph % (Auto) % [place] % (Auto) % Eos % (Auto) % Baso % (Auto) % Neut # (Auto) (1.4-6.5) K/uL Lymph # (Auto) (1.2-3.4) K/uL [place] # (Auto) (0.11-0.59) K/uL Eos # (Auto) (0-0.5) K/uL Baso # (Auto) (0-0.2) K/uL Immature Gran # (Auto) (0.00-0.02) K/uL ESR (0-30) mm/hr Sodium (136-145) mmol/L Potassium (3.5-5.1) mmol/L Chloride (98-107) mmol/L Carbon Dioxide (21-32) mmol/L Anion Gap (3-11) BUN (7-18) mg/dl Creatinine (0.6-1.2) mg/dl Est Cr Clr Drug Dosing ml/min Est GFR ( Amer) ml/min Est GFR (Non-Af Amer) ml/min BUN/Creatinine Ratio (10-20) Glucose (70-99) mg/dl Calcium (8.5-10.1) mg/dl Total Bilirubin (0.2-1) mg/dl AST (15-37) U/L ALT (12-78) U/L Alkaline Phosphatase (45-117) U/L C-Reactive Protein (0-0.29) mg/dl Total Protein (6.4-8.2) gm/dl Albumin (3.4-5.0) gm/dl Globulin (2.5-4.0) gm/dl Albumin/Globulin Ratio (0.9-2) Procalcitonin < 0.05 (0-0.5) ng/ml COVID-19 Eval Order Covid19 at [facility] SARS-CoV-2 (PCR) NEGATIVE (Negative) Administered Medications Sodium Chloride (Nss 1000ml) 1,000 mls @ 125 mls/hr IV .Q8H STA Stop: 01/02/21 03:03 Last Admin: 01/01/21 20:36 Dose: 125 mls/hr Documented by: [id number] Discontinued Medications Ceftriaxone Sodium (Rocephin) 1,000 mg in 50 mls @ 100 mls/hr IV NOW STA Stop: 01/01/21 19:33 Last Infusion: 01/01/21 21:07 Dose: 0 mls/hr Documented by: [id number] Admin: 01/01/21 20:36 Dose: 100 mls/hr Documented by: [id number] Vancomycin HCl 2,000 mg/ (Sodium Chloride) 540 mls @ 200 mls/hr IV NOW ONE Stop: 01/01/21 21:45 Last Admin: 01/01/21 20:36 Dose: 200 mls/hr Documented by: [id number] Ioversol (Optiray 320 100ml) 94 ml IV ONCE ONE Stop: 01/01/21 20:12 Last Admin: 01/01/21 20:11 Dose: 94 ml Documented by: [id number] Imaging Data Radiologist's Impression: Foot CT 01/01/21 19:04 CT foot LT w con CT DOSE: 138.02 mGy.cm CLINICAL HISTORY: swelling TECHNIQUE: A dose lowering technique was utilized adhering to the principles of ALARA. COMPARISON STUDY: None. FINDINGS: No definite acute fracture or dislocation is seen. Osseous structures are diffusely demineralized with few focal sclerotic lesions which might represent enostosis (4/52) There is marked deformity of the cuneiform and cuboid bones with sclerotic irregular borders, loss of joint contour and multiple fragmented areas of ossification/calcifications. Diffuse soft tissue edema is seen. Prominent soft tissue swelling is seen mostly within mid foot area and show hypoattenuating lesion with peripheral enhancement and central area of gas collection. This lesion is measured 1.4 cm in size (301/48) which could repr esent abscess . IMPRESSION: 1. Findings most likely represent neuropathic foot. Osteomyelitis cannot be completely ruled out. Findings were called to emergency Department at the time of this dictation. 2. Diffuse soft tissue edema. Abscess on the plantar aspect of the left foot as detailed above. ACT 112: Positive. There are findings on this exam that require communication between the performing entity and the patient following Patient Test Result Information Act ([place] Act 112) guidelines. The above report was generated using voice recognition software. It may contain grammatical, syntax or spelling errors. Electronically signed by: Jaelyn Claros DO 01/01/2021 8:44 PM Discharge Plan Visit Data Chief Complaint: Foot Injury/Pain Stated Complaint: CHARCOT FOOT PROBLEM ED Provider: Iván Burnett Discharge Problem: Cellulitis of foot, Abscess of foot Patient Disposition: Being Evaluated by Hospitalist Condition: Good Forms Stand Alone Forms: My [facility] Prescriptions Prescriptions: No Action simvastatin 20 mg Tablet 20 mg PO QAM RF: 0 metformin 1,000 mg Tablet 1,000 mg PO BID RF: 0 lisinopril-hydrochlorothiazide 10-12.5 mg Tablet 1 tab PO QAM RF: 0 albuterol sulfate [Ventolin HFA] 90 mcg/actuation Hfa Aerosol Inhaler 1 puff INHALATION Q6H PRN (Reason: Shortness Of Breath) RF: 0 multivitamin Tablet 1 tab PO QAM RF: 0 ipratropium-albuterol [DuoNeb] 0.5 mg-3 mg(2.5 mg base)/3 mL Solution For Nebulization 3 ml INHALATION QID PRN (Reason: Shortness Of Breath Or Wheezing) RF: 0 clobetasol 0.05 % cream 1 applic TOPICAL BID RF: 0 levothyroxine 125 mcg tablet 125 mcg PO QAM RF: 0 diclofenac sodium 75 mg tablet,delayed release (DR/EC) 75 mg PO BID RF: 0 memantine 10 mg tablet 10 mg PO BID RF: 0 olopatadine 0.2 % Drops 1 drp OPHTHALMIC (EYE) DAILY RF: 0 Referrals Referrals: Jeff Duran DO [Primary Care Provider] -
[2021-01-01 19:29] LABS: Basophils # (auto) 0.02 K/uL (0-0.2); Basophils % (auto) 0.2 %; Eosinophils # (auto) 0.21 K/uL (0-0.5); Hematocrit (blood only) 34.3 % (37-47); Hemoglobin 11.4 g/dL (12.0-16.0); Immature Granulocytes # (auto) 0.03 K/uL (0.00-0.02); Immature Granulocytes % (auto) 0.3 %; Lymphocytes # (auto) 1.04 K/uL (1.2-3.4); Lymphocytes % (auto) 9.7 %; Mean Corpuscular Hemoglobin 28.9 pg (25-34); Mean Corpuscular Hgb Conc 33.2 g/dL (32-36); Mean Corpuscular Volume 86.8 fL (80-100); Mean Platelet Volume 9.7 fL (7.4-10.4); Monocytes # (auto) 0.68 K/uL (0.11-0.59); Monocytes % (auto) 6.3 %; Neutrophils # (auto) 8.76 K/uL (1.4-6.5); Neutrophils % (auto) 81.5 %; Platelet Count 239 K/uL (130-400); RDW Coefficient of Variation 13.7 % (11.5-14.5); RDW Standard Deviation 43.7 fL (36.4-46.3); Red Blood Count 3.95 M/uL (4.2-5.4); White Blood Count 10.74 K/uL (4.8-10.8)
[2021-01-01 19:49] LABS: Albumin Level 3.6 gm/dl (3.4-5.0); BUN Creatinine Ratio 27.2 (10-20); Calcium 9.4 mg/dl (8.5-10.1); Creatinine Clr Calc Pharmacy 51.1 ml/min; Est GFR (African American) 73.5 ml/min; Est GFR (Non-African American) 63.4 ml/min; Potassium 3.9 mmol/L (3.5-5.1)
[2021-01-01 19:52] LABS: Bilirubin,Total 0.6 mg/dl (0.2-1); C Reactive Protein 2.92 mg/dl (0-0.29); Globulin 3.6 gm/dl (2.5-4.0); Total Protein 7.2 gm/dl (6.4-8.2)
[2021-01-01] MEDS ORDERED: OPTIRAY 320 100ml IV ONE (20:11)
--- NOTE | 2021-01-01 20:45 | CT Scan Report ---
CT foot LT w con CT DOSE: 138.02 mGy.cm CLINICAL HISTORY: swelling TECHNIQUE: A dose lowering technique was utilized adhering to the principles of ALARA. COMPARISON STUDY: None. FINDINGS: No definite acute fracture or dislocation is seen. Osseous structures are diffusely demineralized wit h few focal sclerotic lesions which might represent enostosis (4/52) There is marked deformity of the cuneiform and cuboid bones with sclerotic irregular borders, loss of joint contour and multiple fragmented areas of ossification/calcifications. Diffuse soft tissue edema is seen. Prominent soft tissue swelling is seen mostly within mid foot area and show hypoattenuating lesion wi th peripheral enhancement and central area of gas collection. This lesion is measured 1.4 cm in size (301/48) which could represent abscess . IMPRESSION: 1. Findings most likely represent neuropathic foot. Osteomyelitis cannot be completely ruled out. Fi ndings were called to emergency Department at the time of this dictation. 2. Diffuse soft tissue edema. Abscess on the plantar aspect of the left foot as detailed above. ACT 112: Positive. There are findings on this exam that require communication between the performing entity and the patient following Patient Test Result Information Act ([place] Act 112) guidelines. The above report was generated using voice recognition software. It may contain grammatical, syntax o r spelling errors. Electronically signed by: Jaelyn Claros DO 01/01/2021 8:44 PM
[2021-01-01] MEDS ORDERED: ALBUT/IPRATROP 3MG/0.5MG NEB 3 ML VIAL INH PRN (23:33)
[2021-01-01] MEDS ORDERED: POLYETHYLENE (MIRALAX) 17 GM PACK PO PRN (23:33)
[2021-01-01] MEDS ORDERED: ALBUTEROL HFA 8 GM INHALER INH PRN (23:33)
[2021-01-01] MEDS ORDERED: PIPERACILL/TAZOBAC CONSULT ACTIVE PRN (23:33)
[2021-01-01] MEDS ORDERED: GLUCAGON FOR INJ 1 MG VIAL IM PRN (23:45)
[2021-01-01] MEDS ORDERED: GLUCOSE 40% GEL 15 GM TUBE PO PRN (23:45)
[2021-01-01] MEDS ORDERED: GLUCOSE 10 TABS/TUBE PO PRN (23:45)
[2021-01-01] MEDS ORDERED: CARBOHYDRATES FOR HYPOGLYCEMIA PO PRN (23:45)
[2021-01-01] MEDS ORDERED: DEXTROSE 50% 50 ML SYRINGE IV PRN (23:45)
--- NOTE | 2021-01-01 23:58 | History and Physical Report ---
DATE OF ADMISSION: 01/01/2021. CHIEF COMPLAINT: Left foot infection. HISTORY OF PRESENT ILLNESS: This is a 75-year-old female with past medical history significant for hyperlipidemia, hypothyroidism, type 2 diabetes, asthma in remission, hypertension, left bundle branch block, vitamin B12 deficiency, chronic kidney disease stage IIIA, presents with left foot pain. The patient says since last couple of weeks, she has noticed a bump in her leg. She is able to ambulate on the leg okay except for some pain. She has also diabetic neuropathy. As per the ER, the family member noticed some redness and swelling over the last 24-48 hours and also large pustule forming over the sole of the foot. No fever. The patient denies any nausea or vomiting, no abdominal pain, no diarrhea, no constipation. Normal bowel and bladder movements. No chest pain, no shortness of breath, no cough, no headache, no blurred vision, no earache, no runny nose, no sore throat. She says she has boots; when she uses the boots, she does not need a cane; when she does not use the boots, she uses her cane and walks around and ambulatory at home. Her appetite is okay. The patient has some dementia, but is alert and oriented to name and place, could tell her date of , seems to have insight of her problems, only she has problems with the dates. In the ER, imaging studies shows abscess in the sole of the left foot and the ER physician has slightly drained and a bandage was placed. ALLERGIES: POLLEN EXTRACTS, SULFA ANTIBIOTICS. PAST MEDICAL HISTORY: As mentioned above. PAST SURGICAL HISTORY: Colonoscopy, left shoulder surgery, cholecystectomy. MEDICATIONS: The patient is on albuterol 1 puff inhalation q.6 hours p.r.n., clobetasol application topically b.i.d., diclofenac sodium 75 mg p.o. b.i.d., DuoNeb 3 mL inhalation q.i.d. p.r.n., levothyroxine 125 mcg p.o. a.m., lisinopril/hydrochlorothiazide 10/12.5 mg p.o. daily, memantine 10 mg p.o. b.i.d., metformin 1000 mg p.o. b.i.d., multivitamin 1 tablet p.o. a.m., olopatadine 1 drop ophthalmic in eye daily, simvastatin 20 mg p.o. a.m. FAMILY HISTORY: No family history in file. SOCIAL HISTORY: , no smoking, no alcohol, no drug use. REVIEW OF SYSTEMS: As per HPI. Rest of review of systems is negative. PHYSICAL EXAMINATION: GENERAL: The patient is of moderate build, not in acute distress. VITAL SIGNS: Temperature 37.3, pulse 58, respiratory rate 19, blood pressure 135/92, oxygen 98% on room air. HEENT: Pupils equal, round and reactive to light. Oral mucosa moist. NECK: No JVD. No neck masses. CARDIOVASCULAR: S1 and S2 heard. Regular rate and rhythm. No murmur, no gallop. RESPIRATORY SYSTEM: Normal AP diameter. No accessory muscle use. No wheezes, no crackles. ABDOMEN: Soft, bowel sounds present, nontender, no distention. CENTRAL NERVOUS SYSTEM: Cranial nerves II-XII grossly intact, nonfocal. EXTREMITIES: Left foot sole is swollen and callus and abscess seen. LABORATORY DATA: WBC 10.7, hemoglobin 11.4, hematocrit 34.3, platelets 239. ESR 41. Sodium 138, potassium 3.9, chloride 107, bicarb 25, BUN 24, creatinine 0.8, serum glucose 95, calcium 9.4, total bilirubin 0.6, AST 19, ALT 26, alkaline phosphatase 96. C-reactive protein 2.9. Procalcitonin less than 0.05. SARS-CoV-[address] scan of the foot, findings most likely represent neuropathic foot, osteomyelitis cannot be completely ruled out. Diffuse soft tissue edema, abscess on the plantar aspect of the left foot. ASSESSMENT AND PLAN: This is a 75-year-old female, presents with left foot wound infection. 1. Left foot infection at the plantar aspect of the foot, diabetic foot: Cultures done in the Emergency Room. CAT scan showing abscess and also possible osteomyelitis. Empirically start on vancomycin and Zosyn. Follow the cultures. N.p.o. after midnight. Consult orthopedics in a.m. for further recommendations. 2. History of dementia: Continue her memantine and monitor for any delirium. 3. History of diabetes: Hold her metformin. Place her on insulin sliding scale, follow hemoglobin A1c level. Follow the blood sugars. 4. Hypothyroidism: Continue Synthroid. 5. History of asthma: In remission. Continue her home inhalers, currently stable. 6. Hypertension: Continue her lisinopril and hydrochlorothiazide. Monitor the blood pressure. 7. Hyperlipidemia: Continue statin. 8. Vitamin B12 deficiency: We will check vitamin B12 levels. 9. Chronic kidney disease stage IIIA: Creatinine of 0.8. We will follow the repeat laboratories. 10. History of left bundle branch block. 11. Deep vein thrombosis prophylaxis: Sequential compression devices. Currently holding anticoagulation for any possible procedures. DISPOSITION: Admit to medical floor. PT, OT prior to discharge. Social service to help with discharge planning. Level 1 full code. Job ID: [id number] MTDD
[2021-01-02] MEDS ORDERED: PIPERACILLIN/TAZOBACTAM 3.375 GM in DEXTROSE 5% 100 ML IV ONE
--- NOTE | 2021-01-02 00:07 | Pharmacy Report ---
Pharmacy Abx Dose Short Note - Date of Service January 02, 2021 - Assessment & Plan Assessment 75 year old F receiving Vancomycin and Zosyn for treatment of possible diabetic foot infection * PMHx significant for T2DM w/ neuropathy * Afebrile. No leukocytosis. Procalcitonin negative. ESR and CRP slightly elevated. SCr normal. * Cultures pending. Plan Vancomycin * Loading dose: 2000 mg (33 mg/kg ??) IV x 1 * Maintenance dose: 750 mg (12 mg/kg) IV every 12 hours - timed later secondary to high loading dose * Goal Trough Level: ~15 mcg/mL * Trough level ordered for 01/03/21 prior to the 1000 dose Zosyn * 3.375 g IV x 1 followed by 3.375 g IV extended infusion every 8 hours for CrCl greater than 20 mL/min Pharmacy will continue to follow and will adjust dose/frequency as necessary. Thank you.
[2021-01-02] MEDS: SODIUM CHLORIDE 0.9% 1000ML 1,000 ML IV SCH ×2 (00:31→14:19)
[2021-01-02] MEDS: *CLOBETASOL*ORDER AWAITING ACTION SCH ×4 (00:59→23:53)
[2021-01-02] MEDS: LEVOTHYROXINE SODIUM 125 MCG TABLET PO SCH (05:37)
[2021-01-02] MEDS: PIPERACILLIN/TAZOBACTAM 3.375 GM in DEXTROSE 5% 100 ML IV SCH ×3 (05:38→21:22)
[2021-01-02 06:38] LABS: Basophils # (auto) 0.04 K/uL (0-0.2); Basophils % (auto) 0.5 %; Eosinophils # (auto) 0.29 K/uL (0-0.5); Eosinophils % (auto) 3.7 %; Hematocrit (blood only) 33.3 % (37-47); Immature Granulocytes # (auto) 0.01 K/uL (0.00-0.02); Immature Granulocytes % (auto) 0.1 %; Lymphocytes % (auto) 11.5 %; Mean Corpuscular Hemoglobin 28.9 pg (25-34); Mean Corpuscular Volume 87.4 fL (80-100); Mean Platelet Volume 9.9 fL (7.4-10.4); Monocytes # (auto) 0.59 K/uL (0.11-0.59); Monocytes % (auto) 7.5 %; Neutrophils # (auto) 6.03 K/uL (1.4-6.5); Neutrophils % (auto) 76.7 %; Platelet Count 218 K/uL (130-400); RDW Coefficient of Variation 13.8 % (11.5-14.5); RDW Standard Deviation 43.7 fL (36.4-46.3); Red Blood Count 3.81 M/uL (4.2-5.4); White Blood Count 7.86 K/uL (4.8-10.8)
[2021-01-02] MEDS ORDERED: Nursing to Pharmacy Communication SCH ×2 (07:00→15:15)
[2021-01-02 07:21] LABS: BUN Creatinine Ratio 23.1 (10-20); Calcium 8.8 mg/dl (8.5-10.1); Creatinine Clr Calc Pharmacy 60.7 ml/min; Est GFR (African American) 90.4 ml/min; Magnesium 1.9 mg/dl (1.8-2.4); Potassium 3.6 mmol/L (3.5-5.1)
[2021-01-02] MEDS ORDERED: INSULIN ASPART 100 UNITS/ML 3 ML PEN SC SCH (07:30)
[2021-01-02 07:46] LABS: Estimated Average Glucose 131 mg/dl; Hemoglobin A1C 6.2 % (4.5-5.6)
[2021-01-02] MEDS: INSULIN ASPART 100 UNITS/ML 3 ML PEN SC SCH ×4 (07:52→20:57)
[2021-01-02] MEDS: LISINOPRIL/HCTZ 10/12.5MG TAB PO SCH (08:00)
[2021-01-02] MEDS: MULTIVITAMIN TAB PO SCH (08:01)
[2021-01-02] MEDS: MEMANTINE HCL 10 MG TAB PO SCH ×2 (08:02→21:22)
[2021-01-02] MEDS ORDERED: SIMVASTATIN 20 MG TAB PO SCH (09:00)
[2021-01-02] MEDS ORDERED: VANCOMYCIN HCL 750 MG in SODIUM CHLORIDE 0.9% 250 ML IV SCH (10:00)
[2021-01-02] MEDS: ACETAMINOPHEN 325 MG TAB PO PRN (13:10)
--- NOTE | 2021-01-02 15:12 | Hospitalist Progress Note ---
Date of Service January 02, 2021 Assessment & Plan (1) Diabetic ulcer of left foot associated with type 2 diabetes mellitus, with fat layer exposed: Presented with diabetic nonhealing open wound on left foot associated with surrounding cellulitis CT of foot:1. Findings most likely represent neuropathic foot. Osteomyelitis cannot be completely ruled out. Findings were called to emergency Department at the time of this dictation. 2. Diffuse soft tissue edema. Abscess on the plantar aspect of the left foot as detailed above. Possible osteomyelitis, with abscess plantar aspect of left foot Orthopedics consulted, patient will need surgical I&D No evidence of sepsis no fever no elevated white count Patient had small surgical incision done of wound in the ER, wound culture ordered will follow Currently on Zosyn and vancomycin Change antibiotic to daptomycin, DC Vanco Awaiting orthopedics input for surgical procedure Wound culture finding, infectious disease will be consulted next week Type 2 diabetes: With diabetic neuropathy, nonhealing diabetic foot wound. Metformin kept on hold continue insulin sliding scale Hypertension, continue outpatient meds (2) Cellulitis of foot: As discussed above (3) Abscess of foot: (4) Diabetic peripheral neuropathy associated with type 2 diabetes mellitus: (5) Foot deformity: Admission and Anticipated Discharge Date Admission Date: January 01, 2021 Subjective Patient seen at bedside, follow-up exam for left foot cellulitis/abscess Patient reports no pain or discomfort on left foot, States that she has been having this left foot swelling/infection for past several weeks Does not have any fever or chills Wants to know if she is getting any orthopedics procedure today Patient is asked to nonweightbearing on the left foot till evaluated by orthopedics Currently getting IV fluids and IV antibiotics, Tolerating well Review of Systems Musculoskeletal: as per Subjective / HPI Physical Exam Constitutional: WD/WN, vitals as above + acute distress Eyes: PERRL, conjunctivae normal, anicteric sclerae ENMT: external ear and nose normal, oropharynx normal Neck: trachea midline, no thyromegaly Respiratory: normal respiratory effort, lungs clear to auscultation Cardiovascular: RRR, no murmur, no edema Gastrointestinal (Abdomen): Percussion/Palpation: abdomen soft; abdomen nontender Musculoskeletal: Extremities: + foot abnormality (Open wound on bottom of left foot, with surrounding area of swelling ) Left Results & Data Results & Data ([facility]) Vital Signs (Past 12 Hours) Vital Signs Temp Pulse Resp BP Pulse Ox 07/09/21 07:24 36.8 C 62 18 125/75 94 (1) Diabetic ulcer of left foot associated with type 2 diabetes mellitus, with fat layer exposed Diabetic foot ulcer location: midfoot Qualified Code(s): E11.621 - Type 2 diabetes mellitus with foot ulcer; L97.422 - Non-pressure chronic ulcer of left heel and midfoot with fat layer exposed
--- NOTE | 2021-01-02 15:54 | Orthopedic Consultation ---
Date of Service January 02, 2021 Assessment & Plan (1) Abscess of foot: I talked to Nighat and her at bedside. I went over the diagnosis and treatment options with him. She has an obvious blister/abscess on the plantar aspect of her foot. I do not think that CAT scan shows any definitive signs of osteomyelitis and I do not think that any surgical debridement or procedures are necessary at this time. I did talk to the hospitalist personally. I think this can be treated best with appropriate wound care and offloading of the left foot for now. Her hemoglobin A1c was 6.2 and her albumin was 3.6. She appears to have good blood flow to her left foot. This wound should heal without further surgical debridements. We will continue to follow. History of Present Illness Reason for Consultation: Left diabetic foot ulcer. Attending Physician: Radha Mora MD Nighat is a pleasant 75-year-old female with a long history of diabetic neuropathy of her lower extremities. Unfortunately she went on to develop a Charcot foot. She had a wound on the plantar aspect of her foot and was treated with a full contact cast and wound care by Dr. Eric for about a year ago. She had the cast on for the most a year. Fortunately the wound went on to heal. She is relatively pain-free with the left foot. Starting yesterday she noticed a small abscess/blister developing on the plantar aspect of her foot. She went to the emergency room and a small incision was made in the blister and there was some purulent discharge. She had a CT scan of her left foot which confirmed the neuropathic joint however, osteomyelitis cannot be ruled out. She was started on IV antibiotics and admitted to the hospital. Orthopedics was consulted to ev aluate and treat.. . Allergies Allergy/AdvReac Type Severity Reaction Status Date / Time pollen extracts Allergy Unknown DIFFICULTY Verified 01/01/21 21:01 BREATHING Sulfa (Sulfonamide Allergy Unknown SWELLING,SO Verified 01/01/21 21:01 Antibiotics) B,HIVES Home Medications Medication Instructions Recorded Confirmed Type albuterol sulfate [Ventolin HFA] 1 puff INHALATION Q6H PRN 04/27/18 01/01/21 History lisinopril-hydrochlorothiazide 1 tab PO QAM 04/27/18 01/01/21 History metformin 1,000 mg PO BID 04/27/18 01/01/21 History simvastatin 20 mg PO QAM 04/27/18 01/01/21 History clobetasol 1 applic TOPICAL BID 01/01/21 01/01/21 History diclofenac sodium 75 mg PO BID 01/01/21 01/01/21 History ipratropium-albuterol [DuoNeb] 3 ml INHALATION QID PRN 01/01/21 01/01/21 History levothyroxine 125 mcg PO QAM 01/01/21 01/01/21 History memantine 10 mg PO BID 01/01/21 01/01/21 History multivitamin 1 tab PO QAM 01/01/21 01/01/21 History olopatadine 1 drp OPHTHALMIC (EYE) DAILY 01/01/21 01/01/21 History Past Med/Surg History Medical History Anemia Anxiety Asthma USES PRN INH 1 X DAILY Diabetes mellitus, type 2 Glaucoma Hyperlipidemia Hypertension Hypothyroidism Osteoarthritis Seasonal allergies Surgical History H/O total hip arthroplasty History of cataract surgery right. 05/23/2018. 2mg versed. no issues History of colonoscopy History of total knee replacement RT History of total shoulder replacement LT Family History Mother Family history of diabetes mellitus Social History Smoking Status: Never smoker Second Hand Exposure: No; Do You Dip or Chew Tobacco: No; Hx Alcohol Use: No Hx Substance Use: No Preferred Language: Azerbaijani Communication Ability: Effective Global Program Manager Required: No Beliefs That Will Affect Care: None Current Living Situation: Spouse Other Information That Helps Us Care for You: No Feels Safe at Home: Yes Safety Concerns: Feels Safe At This Time Assistive Devices: Cane and Walker Review of Systems All systems reviewed & are unremarkable except as noted in HPI & below. Physical Exam On physical examination there is a 3 cm diameter blister on the plantar aspect of her left foot. There is a 1.5 cm longitudinal incision in the center of the blister. There is little bit of purulent discharge from there. There is no redness or erythema. She has good dorsalis pedis pulses. She appears to have good blood flow to her foot.. Constitutional WD/WN, vitals as above Eyes PERRL, conjunctivae normal, anicteric sclerae ENMT external ear and nose normal, oropharynx normal Neck trachea midline, no thyromegaly Respiratory normal respiratory effort Cardiovascular RRR, no murmur, no edema Gastrointestinal (Abdomen) normal bowel sounds, soft, nontender, no hepatosplenomegaly Psychiatric A+Ox3, euthymic affect Results & Data Results & Data Laboratory Results . Diagnostic Findings CT scan of the left foot does show signs of diabetic neuropathy and Charcot neuropathy of the left foot. There is a little bit of air in the soft tissue. The radiologist cannot completely rule out osteomyelitis. I do not see any definitive signs of osteomyelitis. It appears to be mostly neuropathy of the foot.. PG Care Time/CCT Total # of Minutes Spent Total Time Spent with Patient: Total time spent is greater than 50% in coordination of care (as documented) at patient's floor/unit and/or counseling patient: Coding Level of Care Code 82561 Inpt Consult Level 4 Diagnoses Abscess of foot L02.619
[2021-01-02] MEDS ORDERED: DAPTOmycin 350 MG in SYRINGE 0 ML IV ONE (16:00)
--- NOTE | 2021-01-02 16:06 | Communication Note ---
Date of Service: January 02, [address] Nicolas , pt does not have a loculated /large abscess does not need surgical procedure or drainage cont IV abx Radha Mora MD
[2021-01-03] MEDS: LEVOTHYROXINE SODIUM 125 MCG TABLET PO SCH (05:48)
[2021-01-03] MEDS: PIPERACILLIN/TAZOBACTAM 3.375 GM in DEXTROSE 5% 100 ML IV SCH ×3 (05:48→21:19)
[2021-01-03 06:50] LABS: BUN Creatinine Ratio 15.9 (10-20); Creatinine Clr Calc Pharmacy 54.8 ml/min; Est GFR (African American) 79.9 ml/min; Potassium 3.4 mmol/L (3.5-5.1)
[2021-01-03] MEDS: *CLOBETASOL*ORDER AWAITING ACTION SCH ×3 (07:25→23:35)
[2021-01-03] MEDS: LISINOPRIL/HCTZ 10/12.5MG TAB PO SCH (07:26)
[2021-01-03] MEDS: MULTIVITAMIN TAB PO SCH (07:26)
[2021-01-03] MEDS: MEMANTINE HCL 10 MG TAB PO SCH ×2 (07:27→21:20)
[2021-01-03] MEDS ORDERED: DAPTOmycin 225 MG in SYRINGE 0 ML IV SCH (09:00)
[2021-01-03] MEDS: INSULIN ASPART 100 UNITS/ML 3 ML PEN SC SCH ×4 (09:23→20:22)
[2021-01-03] MEDS ORDERED: VANCOMYCIN TROUGH ONE (09:30)
[2021-01-03] MEDS ORDERED: POTASSIUM CHLORIDE CRTAB 20 MEQ TABCR PO STA (12:55)
--- NOTE | 2021-01-03 14:54 | Hospitalist Progress Note ---
Date of Service January 03, 2021 Assessment & Plan (1) Diabetic ulcer of left foot associated with type 2 diabetes mellitus, with fat layer exposed: Presented with diabetic nonhealing open wound on left foot associated with surrounding cellulitis CT of foot:1. Findings most likely represent neuropathic foot. Osteomyelitis cannot be completely ruled out. Findings were called to emergency Department at the time of this dictation. 2. Diffuse soft tissue edema. Abscess on the plantar aspect of the left foot as detailed above. Orthopedics consulted, patient does not need surgical I&D cont IV abx wound care consulted No evidence of sepsis no fever no elevated white count will follow Wound culture finding, infectious disease will be consulted next week Type 2 diabetes: With diabetic neuropathy, nonhealing diabetic foot wound. Metformin kept on hold continue insulin sliding scale Hypertension, continue outpatient meds (2) Cellulitis of foot: As discussed above Full code Disposition : pt will be non wt bearing on left foot , will need wound care , will benefit with rehab PT/OT eval requested social service consulted for discharge planning (3) Abscess of foot: (4) Diabetic peripheral neuropathy associated with type 2 diabetes mellitus: (5) Foot deformity: Admission and Anticipated Discharge Date Admission Date: January 01, 2021 Subjective Patient seen at bedside, follow-up exam for left foot cellulitis/abscess no pain or discomfort on left foot had not had any fever or chills very pleasant but forgetful ( baseline dementia ) normal appetite , no abdominal pain , no nausea or vomiting tolerating IV abx.no diarrhea or loose stool present at bedside Review of Systems Review of Systems: All systems reviewed & are unremarkable except as noted in Subjective Physical Exam Constitutional: WD/WN, vitals as above + acute distress Eyes: PERRL, conjunctivae normal, anicteric sclerae ENMT: external ear and nose normal, oropharynx normal Neck: trachea midline, no thyromegaly Respiratory: normal respiratory effort, lungs clear to auscultation Cardiovascular: RRR, no murmur, no edema Gastrointestinal (Abdomen): Percussion/Palpation: abdomen soft; abdomen nontender Musculoskeletal: Extremities: + foot abnormality (diabetic non healing wound on planter site ) Left Neurologic: PERRL, EOMI, accommodation nl, no face palsy, no dysarthria Psychiatric: Orientation: alert, oriented to person and oriented to place (dementia ) Results & Data Results & Data ([facility]) Vital Signs (Past 12 Hours) Vital Signs Temp Pulse Resp BP Pulse Ox 01/03/21 07:37 37 C 57 L 16 151/83 H 96 (1) Diabetic ulcer of left foot associated with type 2 diabetes mellitus, with fat layer exposed Diabetic foot ulcer location: midfoot Qualified Code(s): E11.621 - Type 2 diabetes mellitus with foot ulcer; L97.422 - Non-pressure chronic ulcer of left heel and midfoot with fat layer exposed
[2021-01-03] MEDS: DAPTOmycin 350 MG in SYRINGE 0 ML IV SCH (16:12)
[2021-01-03] MEDS: ADVANCED PROBIOTIC 1250 MG CAPSULE PO SCH (16:13)
[2021-01-03] MEDS: ACETAMINOPHEN 325 MG TAB PO PRN (21:20)
[2021-01-04] MEDS: PIPERACILLIN/TAZOBACTAM 3.375 GM in DEXTROSE 5% 100 ML IV SCH (05:29)
[2021-01-04] MEDS: LEVOTHYROXINE SODIUM 125 MCG TABLET PO SCH (05:30)
[2021-01-04 07:00] LABS: BUN Creatinine Ratio 17.5 (10-20); Creatinine Clr Calc Pharmacy 51.7 ml/min; Est GFR (African American) 74.5 ml/min; Est GFR (Non-African American) 64.3 ml/min; Potassium 3.8 mmol/L (3.5-5.1)
[2021-01-04] MEDS: *CLOBETASOL*ORDER AWAITING ACTION SCH ×2 (07:30→16:09)
[2021-01-04] MEDS: MEMANTINE HCL 10 MG TAB PO SCH ×2 (07:31→19:54)
[2021-01-04] MEDS: MULTIVITAMIN TAB PO SCH (07:32)
[2021-01-04] MEDS: LISINOPRIL/HCTZ 10/12.5MG TAB PO SCH (07:33)
[2021-01-04] MEDS: ADVANCED PROBIOTIC 1250 MG CAPSULE PO SCH (07:33)
--- NOTE | 2021-01-04 07:46 | Communication Note ---
Date of Service: January 04, 2021 Patient's left foot wound culture: Positive for MRSA. continue with IV daptomycin, discontinue Zosyn. ID consult with Bharat tomorrow. Radha Mora MD
--- NOTE | 2021-01-04 08:04 | Orthopedic Progress Note ---
Date of Service January 04, 2021 Assessment & Plan (1) Abscess of foot: Initial CT scan of the left foot in the emergency room did show a plantar abscess. This was incised and drained in the emergency room. Cultures have since grown out MRSA. I do not see any other evidence of a deep abscess or reasons to do a surgical debridement at this time. I do want to leave the incision open so the abscess can continue to drain. She is currently on IV daptomycin. She will have a infectious disease consult tomorrow. Wound care should also see her tomorrow for appropriate dressing changes. She can be weightbearing as tolerated in her full contact boot. I do not see any surgical indications at this time. If you have any further questions please feel free to contact me on my cell phone at [phone]. Hattie Disla was seen and examined at bedside this morning. Overall she is doing fairly well. She is not having any pain in the left foot. Her symptoms have not worsened. She has been on IV daptomycin. She has no new complaints.. Review of Systems All systems reviewed & are unremarkable except as noted in HPI & below. Physical Exam On physical examination of her left foot, I was able to express a little bit of purulent discharge from the abscess. She does not have any pain. The blistered area does not appear to be expanding. On see any signs of erythema.. Results & Data Results & Data Laboratory Results . Diagnostic Findings . PG Care Time/CCT Total # of Minutes Spent Total Time Spent with Patient: Total time spent is greater than 50% in coordination of care (as documented) at patient's floor/unit and/or counseling patient: Coding Level of Care Code 27176 Subseq Hosp Care Lvl 2 Diagnoses Abscess of foot L02.619
[2021-01-04] MEDS: INSULIN ASPART 100 UNITS/ML 3 ML PEN SC SCH ×4 (09:09→21:16)
[2021-01-04] MEDS: DAPTOmycin 350 MG in SYRINGE 0 ML IV SCH (16:18)
--- NOTE | 2021-01-04 16:22 | Hospitalist Progress Note ---
Date of Service January 04, 2021 Assessment & Plan (1) Diabetic ulcer of left foot associated with type 2 diabetes mellitus, with fat layer exposed: Presented with diabetic nonhealing open wound on left foot associated with surrounding cellulitis CT of foot:1. Findings most likely represent neuropathic foot. Osteomyelitis cannot be completely ruled out. Findings were called to emergency Department at the time of this dictation. 2. Diffuse soft tissue edema. Abscess on the plantar aspect of the left foot as detailed above. Orthopedics consulted, patient does not need surgical I&D Wound culture shows MRSA, continue IV daptomycin Zosyn discontinued Wound care consulted Bharat PIMENTEL consulted for recommendation for antibiotic Type 2 diabetes: With diabetic neuropathy, nonhealing diabetic foot wound. Metformin kept on hold continue insulin sliding scale Hypertension, continue outpatient meds (2) Cellulitis of foot: As discussed above Full code Disposition : pt will be non wt bearing on left foot , will need wound care , will benefit with rehab PT/OT eval requested social service consulted for discharge planning Plan of care updated to patient at bedside (3) Abscess of foot: (4) Diabetic peripheral neuropathy associated with type 2 diabetes mellitus: (5) Foot deformity: Admission and Anticipated Discharge Date Admission Date: January 01, 2021 Subjective Patient seen at bedside, follow-up exam for left foot cellulitis/abscess Very pleasant, comfortable, gets forgetful present at bedside Denies of any pain or discomfort on left foot No fever or chills, no complaint of shortness of breath no cough level Review of Systems Review of Systems: All systems reviewed & are unremarkable except as noted in Subjective Physical Exam Constitutional: WD/WN, vitals as above + acute distress Eyes: PERRL, conjunctivae normal, anicteric sclerae ENMT: external ear and nose normal, oropharynx normal Neck: trachea midline, no thyromegaly Respiratory: normal respiratory effort, lungs clear to auscultation Cardiovascular: RRR, no murmur, no edema Gastrointestinal (Abdomen): Percussion/Palpation: abdomen soft; abdomen nontender Musculoskeletal: Extremities: + foot abnormality (diabetic non healing wound on planter site ) Neurologic: PERRL, EOMI, accommodation nl, no face palsy, no dysarthria Psychiatric: Orientation: alert, oriented to person and oriented to place (dementia ) Results & Data Results & Data ([facility]) Vital Signs (Past 12 Hours) Vital Signs Temp Pulse Resp BP Pulse Ox 01/04/21 14:32 36.7 C 70 18 162/85 H 97 01/04/21 12:34 132/73 01/04/21 07:52 36.5 C 64 18 166/98 H 96 (1) Diabetic ulcer of left foot associated with type 2 diabetes mellitus, with fat layer exposed Diabetic foot ulcer location: midfoot Qualified Code(s): E11.621 - Type 2 diabetes mellitus with foot ulcer; L97.422 - Non-pressure chronic ulcer of left heel and midfoot with fat layer exposed
[2021-01-05] MEDS: *CLOBETASOL*ORDER AWAITING ACTION SCH ×4 (00:33→21:32)
[2021-01-05] MEDS: LEVOTHYROXINE SODIUM 125 MCG TABLET PO SCH (06:16)
[2021-01-05 08:56] LABS: Creatinine Clr Calc Pharmacy 57.6 ml/min; Est GFR (African American) 84.9 ml/min; Est GFR (Non-African American) 73.2 ml/min
[2021-01-05] MEDS: INSULIN ASPART 100 UNITS/ML 3 ML PEN SC SCH ×4 (09:02→21:30)
[2021-01-05] MEDS: MULTIVITAMIN TAB PO SCH (09:03)
[2021-01-05] MEDS: MEMANTINE HCL 10 MG TAB PO SCH ×2 (09:04→21:30)
[2021-01-05] MEDS: LISINOPRIL/HCTZ 10/12.5MG TAB PO SCH (09:04)
[2021-01-05] MEDS: ADVANCED PROBIOTIC 1250 MG CAPSULE PO SCH (09:04)
--- NOTE | 2021-01-05 09:38 | Communication Note ---
Date of Service: January 05, 2021 Patient was seen by [facility] infectious disease today, received communication: IMPRESSION: Abscess on the plantar aspect of L foot Hx of allergy to sulfa Hx of DM2 w/ diabetic neuroapathy and CKDIII RECOMMENDATIONS: - Stop daptomycin. - Start clindamycin 300 mg po [id number] for 10-14 days or until infection resolves - Continue wound care and diabetic management Order to DC daptomycin, will start patient on p.o. clindamycin, Patient may benefit with rehab, will discuss with case management Will not need any IV antibiotic on discharge. Radha Mora MD
[2021-01-05] MEDS: CLINDAMYCIN HCL 150 MG CAP PO SCH ×2 (13:50→21:31)
--- NOTE | 2021-01-05 18:44 | Hospitalist Progress Note ---
Date of Service January 05, 2021 Assessment & Plan (1) Diabetic ulcer of left foot associated with type 2 diabetes mellitus, with fat layer exposed: Presented with diabetic nonhealing open wound on left foot associated with surrounding cellulitis CT of foot:. Findings most likely represent neuropathic foot. Osteomyelitis cannot be completely ruled out. Findings were called to emergency Department at the time of this dictation. 2. Diffuse soft tissue edema. Abscess on the plantar aspect of the left foot as detailed above. Orthopedics consulted, patient does not need surgical I&D Wound culture shows MRSA, Bharat PIMENTEL consulted for recommendation for antibiotic-appreciate input, recommends p.o. clindamycin for 2 weeks Does not need IV antibiotics Antibiotic changed as recommended Type 2 diabetes: With diabetic neuropathy, nonhealing diabetic foot wound. Metformin kept on hold continue insulin sliding scale Hypertension, continue outpatient meds (2) Cellulitis of foot: As discussed above Full code Disposition : pt will be non wt bearing on left foot , will need wound care , will benefit with rehab PT/OT eval requested social service consulted for discharge planning (3) Abscess of foot: (4) Diabetic peripheral neuropathy associated with type 2 diabetes mellitus: (5) Foot deformity: Admission and Anticipated Discharge Date Admission Date: January 01, 2021 Subjective Patient seen at bedside, follow-up exam for left foot cellulitis/abscess Very pleasant, smiling , forgetful /dementia knows that she is in the hospital Has underlying advanced diabetic neuropathy neuropathy, does not feel any pain or discomfort on left foot: No fever or chills, no dizzy spell or lightheadedness, Review of Systems Review of Systems: Unobtainable due to cognitive status (Dementia) Physical Exam Constitutional: WD/WN, vitals as above + acute distress Eyes: PERRL, conjunctivae normal, anicteric sclerae ENMT: external ear and nose normal, oropharynx normal Neck: trachea midline, no thyromegaly Respiratory: normal respiratory effort, lungs clear to auscultation Cardiovascular: RRR, no murmur, no edema Gastrointestinal (Abdomen): Percussion/Palpation: abdomen soft; abdomen nontender Musculoskeletal: Extremities: + foot abnormality (diabetic non healing wound on planter site ) Neurologic: PERRL, EOMI, accommodation nl, no face palsy, no dysarthria Psychiatric: Orientation: alert, oriented to person and oriented to place (dementia ) Results & Data Results & Data ([facility]) Vital Signs (Past 12 Hours) Vital Signs Temp Pulse Resp BP Pulse Ox 01/05/21 14:38 36.8 C 69 16 118/75 96 01/05/21 08:16 36.9 C 64 16 135/80 96 (1) Diabetic ulcer of left foot associated with type 2 diabetes mellitus, with fat layer exposed Diabetic foot ulcer location: midfoot Qualified Code(s): E11.621 - Type 2 diabetes mellitus with foot ulcer; L97.422 - Non-pressure chronic ulcer of left heel and midfoot with fat layer exposed
[2021-01-06] MEDS: CLINDAMYCIN HCL 150 MG CAP PO SCH ×3 (05:31→21:13)
[2021-01-06] MEDS: LEVOTHYROXINE SODIUM 125 MCG TABLET PO SCH (05:32)
[2021-01-06] MEDS: *CLOBETASOL*ORDER AWAITING ACTION SCH ×2 (09:07→16:27)
[2021-01-06] MEDS: INSULIN ASPART 100 UNITS/ML 3 ML PEN SC SCH ×4 (09:08→21:14)
[2021-01-06] MEDS: LISINOPRIL/HCTZ 10/12.5MG TAB PO SCH (09:24)
[2021-01-06] MEDS: ADVANCED PROBIOTIC 1250 MG CAPSULE PO SCH (09:25)
[2021-01-06] MEDS: MULTIVITAMIN TAB PO SCH (09:26)
[2021-01-06] MEDS: MEMANTINE HCL 10 MG TAB PO SCH ×2 (09:26→21:13)
--- NOTE | 2021-01-06 17:35 | Hospitalist Progress Note ---
Date of Service January 06, 2021 Assessment & Plan (1) Diabetic ulcer of left foot associated with type 2 diabetes mellitus, with fat layer exposed: Presented with diabetic nonhealing open wound on left foot associated with surrounding cellulitis CT of foot:. Findings most likely represent neuropathic foot. Osteomyelitis cannot be completely ruled out. Findings were called to emergency Department at the time of this dictation. 2. Diffuse soft tissue edema. Abscess on the plantar aspect of the left foot as detailed above. Orthopedics consulted, patient does not need surgical I&D Wound culture shows MRSA, Bharat PIMENTEL consulted for recommendation for antibiotic-appreciate input, recommends p.o. clindamycin for 2 weeks Patient is on p.o. clindamycin, tolerating well, no diarrhea or loose stool Updated patient's regarding importance of taking probiotic while taking clindamycin for long-term Type 2 diabetes: With diabetic neuropathy, nonhealing diabetic foot wound. Metformin kept on hold continue insulin sliding scale Hypertension, continue outpatient meds (2) Cellulitis of foot: As discussed above Full code Disposition : Appreciate input from PT OT, recommends patient return home with home health Referral made to [facility] home health, updated at bedside plan for discharge home with home health tomorrow (3) Abscess of foot: (4) Diabetic peripheral neuropathy associated with type 2 diabetes mellitus: (5) Foot deformity: Admission and Anticipated Discharge Date Admission Date: January 01, 2021 Subjective , follow-up exam for left foot cellulitis/abscess Very pleasant, smiling , Offers no complaint, present at bedside forgetful /dementia knows that she is in the hospital Has underlying advanced diabetic neuropathy neuropathy, does not feel any pain or discomfort on left foot: No fever or chills, no dizzy spell or lightheadedness, Patient is tolerating p.o. clindamycin well, spoke briefly regarding importance of taking probiotics to prevent antibiotic induced gastroenteritis /C. difficile Review of Systems Review of Systems: All systems reviewed & are unremarkable except as noted in Subjective Physical Exam Constitutional: WD/WN, vitals as above + acute distress Eyes: PERRL, conjunctivae normal, anicteric sclerae ENMT: external ear and nose normal, oropharynx normal Neck: trachea midline, no thyromegaly Respiratory: normal respiratory effort, lungs clear to auscultation Cardiovascular: RRR, no murmur, no edema Gastrointestinal (Abdomen): Percussion/Palpation: abdomen soft; abdomen nontender Musculoskeletal: Extremities: + foot abnormality (diabetic non healing wound on planter site ) Neurologic: PERRL, EOMI, accommodation nl, no face palsy, no dysarthria Psychiatric: Orientation: alert, oriented to person and oriented to place (dementia ) Results & Data Results & Data ([facility]) Vital Signs (Past 12 Hours) Vital Signs Temp Pulse Resp BP Pulse Ox 01/06/21 15:03 37 C 72 18 102/67 93 01/06/21 07:47 36.9 C 66 16 127/85 96 (1) Diabetic ulcer of left foot associated with type 2 diabetes mellitus, with fat layer exposed Diabetic foot ulcer location: midfoot Qualified Code(s): E11.621 - Type 2 diabetes mellitus with foot ulcer; L97.422 - Non-pressure chronic ulcer of left heel and midfoot with fat layer exposed
[2021-01-07] MEDS: *CLOBETASOL*ORDER AWAITING ACTION SCH ×3 (00:22→15:04)
[2021-01-07] MEDS: LEVOTHYROXINE SODIUM 125 MCG TABLET PO SCH (06:31)
[2021-01-07] MEDS: CLINDAMYCIN HCL 150 MG CAP PO SCH ×2 (06:31→13:31)
[2021-01-07] MEDS: LISINOPRIL/HCTZ 10/12.5MG TAB PO SCH (07:36)
[2021-01-07] MEDS: ADVANCED PROBIOTIC 1250 MG CAPSULE PO SCH (07:36)
[2021-01-07] MEDS: MULTIVITAMIN TAB PO SCH (07:36)
[2021-01-07] MEDS: MEMANTINE HCL 10 MG TAB PO SCH (07:36)
[2021-01-07] MEDS: INSULIN ASPART 100 UNITS/ML 3 ML PEN SC SCH ×2 (08:58→13:07)
--- NOTE | 2021-01-07 16:25 | Hospitalist Progress Note ---
Date of Service January 07, 2021 Assessment & Plan (1) Diabetic ulcer of left foot associated with type 2 diabetes mellitus, with fat layer exposed: Plan: Diabetic ulcer of left foot associated with type 2 diabetes mellitus, with fat layer exposed: Diabetic nonhealing open wound on left foot associated with surrounding cellulitis Left Foot Abscess-POA -CT of foot:Findings most likely represent neuropathic foot. Osteomyelitis cannot be completely ruled out. Findings were called to emergency Department at the time of this dictation. Diffuse soft tissue edema. Abscess on the plantar aspect of the left foot as detailed above. -Wound Cx:MRSA -Blood Cx: Negative S/P I&D in ED Doesn't need debridement as per Orthopedics Continue wound care weightbearing as tolerated in her full contact boot Appreciate Orthopedics Input Jazmin PIMENTEL consulted for recommendation for antibiotic-appreciate input, recommends p.o. clindamycin for 2 weeks Continue antibiotics as per ID Type 2 diabetes: With diabetic neuropathy, nonhealing diabetic foot wound. Metformin kept on hold continue insulin sliding scale Hypertension, continue home meds Dementia stable Code Status Full code Disposition : Home with Home Health Admission and Anticipated Discharge Date Admission Date: January 01, 2021 Subjective Patient is seen and examined at bedside Offers no complaints today Denies any pain of the left foot Also denies chest pain, shortness of breath, dizziness, nausea, abdominal pain Family at bedside Offers no other complaints Review of Systems Review of Systems: All systems reviewed, negative other than subjective. Physical Exam Physical Exam: Physical Exam: Vitals signs as noted above General Appearance:Moderately built and nourished, no apparent distress Head: normocephalic, Atraumatic Eyes: normal inspection, EOMI Neck: supple, Trachea midline Respiratory/Chest: Normal breath sounds, CTA, No accessory muscle use Cardiovascular: S1, S2, No murmur Abdomen/GI:Soft, Non tender, Bowel sounds present Extremities/Musculoskeletal:normal inspection, no edema, Left foot in dressing Neurologic/Psych:AAO, grossly no focal neurological deficits, +Dementia Skin: normal color, warm Results & Data Results & Data ([facility]) Vital Signs (Past 12 Hours) Vital Signs Temp Pulse Resp BP Pulse Ox 01/07/21 06:16 36.6 C 59 L 16 121/75 97 (1) Diabetic ulcer of left foot associated with type 2 diabetes mellitus, with fat layer exposed Diabetic foot ulcer location: midfoot Qualified Code(s): E11.621 - Type 2 diabetes mellitus with foot ulcer; L97.422 - Non-pressure chronic ulcer of left heel and midfoot with fat layer exposed
--- NOTE | 2021-01-07 16:37 | Discharge Summary ---
Date of Service January 07, 2021 Admission HPI Per Admitting Provider CHIEF COMPLAINT: Left foot infection. HISTORY OF PRESENT ILLNESS: This is a 75-year-old female with past medical history significant for hyperlipidemia, hypothyroidism, type 2 diabetes, asthma in remission, hypertension, left bundle branch block, vitamin B12 deficiency, chronic kidney disease stage IIIA, presents with left foot pain. The patient says since last couple of weeks, she has noticed a bump in her leg. She is able to ambulate on the leg okay except for some pain. She has also diabetic neuropathy. As per the ER, the family member noticed some redness and swelling over the last 24-48 hours and also large pustule forming over the sole of the foot. No fever. The patient denies any nausea or vomiting, no abdominal pain, no diarrhea, no constipation. Normal bowel and bladder movements. No chest pain, no shortness of breath, no cough, no headache, no blurred vision, no earache, no runny nose, no sore throat. She says she has boots; when she uses the boots, she does not need a cane; when she does not use the boots, she uses her cane and walks around and ambulatory at home. Her appetite is okay. The patient has some dementia, but is alert and oriented to name and place, could tell her date of , seems to have insight of her problems, only she has problems with the dates. In the ER, imaging studies shows abscess in the sole of the left foot and the ER physician has slightly drained and a bandage was placed. Admission Exam Per Admitting Provider PHYSICAL EXAMINATION: GENERAL: The patient is of moderate build, not in acute distress. VITAL SIGNS: Temperature 37.3, pulse 58, respiratory rate 19, blood pressure 135/92, oxygen 98% on room air. HEENT: Pupils equal, round and reactive to light. Oral mucosa moist. NECK: No JVD. No neck masses. CARDIOVASCULAR: S1 and S2 heard. Regular rate and rhythm. No murmur, no gallop. RESPIRATORY SYSTEM: Normal AP diameter. No accessory muscle use. No wheezes, no crackles. ABDOMEN: Soft, bowel sounds present, nontender, no distention. CENTRAL NERVOUS SYSTEM: Cranial nerves II-XII grossly intact, nonfocal. EXTREMITIES: Left foot sole is swollen and callus and abscess seen. Principal Diagnosis Diabetic ulcer of left foot with cellulitis Peripheral neuropathy associated with type 2 diabetes mellitus Dementia Discharge Data Allergies Allergy/AdvReac Type Severity Reaction Status Date / Time pollen extracts Allergy Unknown DIFFICULTY Verified 01/01/21 21:01 BREATHING Sulfa (Sulfonamide Allergy Unknown SWELLING,SO Verified 01/01/21 21:01 Antibiotics) B,HIVES Consultations 01/01/21 21:18 ED Decision to Admit Stat 01/02/21 08:00 Consult Orthopedic Surgery Routine 01/04/21 18:45 Consult Infectious Diseases Routine Ordered Studies 01/01/21 19:04 CT foot LT w con Stat Hospital Course (1) Diabetic ulcer of left foot associated with type 2 diabetes mellitus, with fat layer exposed: Diabetic ulcer of left foot associated with type 2 diabetes mellitus, with fat layer exposed: Diabetic nonhealing open wound on left foot associated with surrounding cellulitis Left Foot Abscess-POA -CT of foot:Findings most likely represent neuropathic foot. Osteomyelitis cannot be completely ruled out. Findings were called to emergency Department at the time of this dictation. Diffuse soft tissue edema. Abscess on the plantar aspect of the left foot as detailed above. -Wound Cx:MRSA -Blood Cx: Negative S/P I&D in ED Doesn't need debridement as per Orthopedics Continue wound care weightbearing as tolerated in her full contact boot Appreciate Orthopedics Input Jazmin Nichloson ID consulted for recommendation for antibiotic-appreciate input, recommends p.o. clindamycin for 2 weeks Continue antibiotics as per ID Type 2 diabetes: With diabetic neuropathy, nonhealing diabetic foot wound. Metformin kept on hold continue insulin sliding scale Hypertension, continue home meds Dementia stable Code Status Full code Disposition : Home with Home Health Total Time Total Time Spent Total Time Spent (In Minutes): 42 minutes Discharge Plan Discharge Items Patient Disposition: Home - Home Health Services Reason For Visit: FOOT PAIN Discharge Diagnosis: Diabetic ulcer of left foot with cellulitis Peripheral neuropathy associated with type 2 diabetes mellitus Dementia Condition on Discharge: Good Activity: As commented below Exercise/Sports: Wait until after follow-up appointment Non-emergency contact: Primary Care Provider Call non-emergency contact if: you have any medication questions, your symptoms worsen, your pain is concerning for you, you have a fever, your wound has increased redness, your wound has increased drainage and your wound pain has increased Follow-up/Referrals: Jony Ash DO [Physician] - (Follow-up with orthopedics in 2-4 weeks) Jeff Duran DO [Primary Care Provider] - (Date & Time 01/13/2021 1:40 PM Provider Jeff Duran DO Department [facility] ) Diet: Carb Consistent or DM2 and Heart Healthy Addtl Attending Provider Instructions: Please follow up with your PCP Dr.Trevor Duran on 01/13/2021 1:40 PM Follow up with your Orthopedic Surgeon in 2-4 weeks Please take all medications as instructed on discharge list below. It is recommended that you follow-up with your primary care physician within 1-2 weeks of hospital discharge to ensure you are still doing well. Please call if you have any questions or problems. You can reach a [facility] hospitalist on duty at [facility] 24 hours a day by calling [phone] Continue to follow-up at the wound clinic Add Astrochemist Provider Instructions: PLEASE TAKE PROBIOTICS ( OVER THE COUNTER ) WHILE TAKING ANTIBIOTICS TO PREVENT DIARRHEA /LOOSE STOOL Please notify your family physician if you are started to have diarrhea or loose stool, abdominal pain, fever Pending Studies at Discharge: No Stand-Alone Forms: My [facility], Smoking Cessation Medications and DC Order Prescriptions: New clindamycin HCl 150 mg Capsule 300 mg PO Q8 14 Days Qty: 84 RF: 0 Lacto.acidophilus-Bif.animalis 2 billion cell capsule 1 cap PO TIDM Qty: 90 RF: 0 Continued simvastatin 20 mg Tablet 20 mg PO QAM RF: 0 metformin 1,000 mg Tablet 1,000 mg PO BID RF: 0 lisinopril-hydrochlorothiazide 10-12.5 mg Tablet 1 tab PO QAM RF: 0 albuterol sulfate [Ventolin HFA] 90 mcg/actuation Hfa Aerosol Inhaler 1 puff INHALATION Q6H PRN (Reason: Shortness Of Breath) RF: 0 multivitamin Tablet 1 tab PO QAM RF: 0 ipratropium-albuterol 0.5 mg-3 mg(2.5 mg base)/3 mL Solution For Nebulization 3 ml INHALATION QID PRN (Reason: Shortness Of Breath Or Wheezing) RF: 0 clobetasol 0.05 % cream 1 applic TOPICAL BID RF: 0 levothyroxine 125 mcg tablet 125 mcg PO QAM RF: 0 diclofenac sodium 75 mg tablet,delayed release (DR/EC) 75 mg PO BID RF: 0 memantine 10 mg tablet 10 mg PO BID RF: 0 olopatadine 0.2 % Drops 1 drp OPHTHALMIC (EYE) DAILY RF: 0 Discharge Orders: Discharge Order (Routine); Ordered 01/07/21 Ordered By: Yosvany Herrera/Other Patient Handouts: A1C, Managing Type 2 Diabetes, Special [facility] for Diabetes Admission Data Admit Date/Time: 01/01/21 22:31 Attending Provider: Yosvany Rojas Admit Provider: John Win Primary Care Provider: Jeff Duran Other Providers: John Win ; Jony Ash ; David Vance ; Leela Minor ; Terry Burgess I. ; Roberto Lowry II ; Park Oreilly ; Ede Hernadez ; [facility] Other Interventions: Discharge Summary Assessment (RN) Last Done: 01/07/21 17:32
== END 2021-01-07 18:35 | disposition home health service (06) | DRG 74 ==
LOC: ED 18:03 → SUATTDRO 22:31 → 3W 22:31